=== PATIENT | male | born 1970 | race Caucasian/White ===

== ENCOUNTER 2019-01-31 13:58 | Inpatient (IN) ==
[2019-01-31] MEDS ORDERED: NS 1,000 ML IV ONE (14:16)
[2019-01-31] MEDS ORDERED: ZOFRAN IV ONE (14:16)
--- NOTE | 2019-01-31 14:22 | PROVIDER DOCUMENTATION ---
HPI-Abdominal Pain/GI Problem - General Chief Complaint: Abdominal Pain Stated Complaint: AMS/FEVER Time Seen by Provider: 01/31/19 14:07 Source: patient Allergies/Adverse Reactions: Patient Allergies Allergy/AdvReac Type Severity Reaction Status Date / Time morphine Allergy Unknown Verified 08/20/16 07:00 heparin AdvReac FLUSHING Verified 08/22/16 18:47 vancomycin AdvReac FLUSHING Verified 08/20/16 07:00 Home Medications: Home Medication List Medication Instructions Recorded Confirmed Last Taken Type Omeprazole 40 mg PO DAILY #30 capsule. 07/18/16 11/29/16 12/02/16 09:00 Rx Multivitamins/Iron [Hemocyte Plus 1 each PO DAILY #100 capsule 08/26/16 11/29/16 12/02/16 09:00 Rx Capsule] Cetirizine HCl [Zyrtec] 10 mg PO DAILY 11/29/16 11/29/16 12/02/16 09:00 History Docusate Sodium [Colace] 100 mg PO DAILY 11/29/16 11/29/16 12/02/16 09:00 History Hydrocortisone Supp [Anusol-Hc 25 mg VT BID #20 supp 12/03/16 Unknown Rx Supp] Rivaroxaban [Xarelto] 20 mg PO DAILY #0 12/07/16 11/29/16 12/02/16 09:00 Rx - History of Present Illness-ABD Nature of Presenting Problems: HPI: Pt reports to ED with R/L sided abdominal pain, fever and nausea. he has PMH of Colon Cancer stage 4, s/p bowel resection, s/p chemo, being followed by Dr Diaz. He states he was scheduled to have his port removed from is right shoulder to left shoulder. He also reports going to [place] 4 weeks ago, returned 9 days ago, his port was accessed for immunotherapy. He started to complain of R/L abdominal pain, dull, comes and goes, worse with movement, having BM normally, no vomiting, but has nausea. He states he has also had a fever for the past 2 days, did not measure it. Abdominal Pain Onset Location: reports: RUQ, LUQ Pain Radiation: reports: periumbilical, flank Quality of Pain: reports: aching, cramping, dull Severity in ED: reports: moderate Onset/Duration: reports: 2 days ago Timing: reports: still present Activities at Onset: reports: none Exposure to sick contacts?: No Modifying Factors: improves with: analgesics Associated Symptoms: reports: fatigue, nausea, weakness. denies: chest pain, diarrhea, dizziness, vomiting Last BM: this morning Dark Stools Present?: reports: none noticed Rectal Bleeding: reports: none Rectal Pain: reports: none Emesis Description: reports: none Bruising or Bleeding Gums?: No Similar Symptoms Previously?: No Recently seen or treated by another doctor?: No Review of Systems - Adult - REVIEW OF SYSTEMS - ADULT Constitutional: reports: no symptoms reported Eyes: reports: no symptoms reported Ears, Nose, Mouth & Throat: reports: no symptoms reported Cardiovascular: reports: no symptoms reported Respiratory: reports: no symptoms reported Gastrointestinal: reports: see HPI Genitourinary: reports: no symptoms reported Musculoskeletal: reports: no symptoms reported Integumentary: reports: no symptoms reported Neurological: reports: no symptoms reported Psychiatric: reports: no symptoms reported Endocrine: reports: no symptoms reported Hematologic/Lymphatic: reports: no symptoms reported Allergic/Immunologic: reports: no symptoms reported All Other Systems: Reviewed and Negative Past History - Adult - PAST MEDICAL HISTORY-ADULT Review of Records: reports: Old Records Reviewed, Nursing Assessment Review, Medications Reviewed, Social history reviewed & non-contributory. Major Childhood Illnesses: reports: denies history Cardiovascular: reports: denies history Respiratory: reports: denies history Gastrointestinal: reports: cancer Obstetrical/Gynecological: reports: denies history Genitourinary: reports: denies history Musculoskeletal: reports: denies history Neurological: reports: denies history Endocrine/Immune: reports: denies history Other Conditions: reports: denies history - PRIOR SURGERIES/PROCEDURES Surgical/Procedure History: reports: bowel surgery - IMMUNIZATION STATUS Childhood Immunizations: See Nurse Assessment Flu Vaccine: See Nurse Assessment - FAMILY HISTORY Family History: reviewed, not pertinent - SOCIAL HISTORY Smoking: denies Substance Use: none/never Alcohol Use Frequency: sober (former use) Living Situation: family Physical Exam-General - PHYSICAL EXAM-ADULT Initial Vital Signs Reviewed: Yes - CONSTITUTIONAL General Appearance: moderate distress - EYES Eyes: PERRL/EOMI, pink conjunctivae - HEAD, EARS, NOSE, MOUTH & THROAT HENMT: moist mucous membranes - NECK Neck: non-tender, full range of motion, supple - RESPIRATORY Respiratory: chest non-tender, lungs clear, normal breath sounds - CARDIOVASCULAR Cardiovascular: normal peripheral pulses, no edema, no gallop, tachycardia - GASTROINTESTINAL (ABDOMEN) Abdominal Exam: normal bowel sounds, soft, tenderness. negative: non tender, guarding, rigid, rebound - LYMPHATIC Lymphatic: no adenopathy - MUSCULOSKELETAL Back Exam: normal inspection, no CVA tenderness Extremity: normal range of motion, non-tender, normal gait, normal inspection Peripheral Pulses: radial (R): 2+, radial (L): 2+, dorsalis-pedis (R): 2+, dorsalis-pedis (L): 2+ - SKIN Integumentary: normal color, normal turgor, warm/dry - NEUROLOGIC Neurologic: chief of field operations II-XII nml as tested, grossly normal, no motor/sensory deficits, negative romberg's sign. negative: facial droop, focal weakness, motor weakness, sensory deficit - PSYCHIATRIC Psych/Mental Status: normal mood/affect, normal thought content, normal thought process, oriented x 3 Progress - PLAN OF CARE/RESULTS Progress/Plan/Lab Results: Vital Signs - 8 hr 01/31/19 14:01 Temperature 99.6 F Pulse Rate 115 H Respiratory Rate 22 Blood Pressure 121/73 O2 Sat by Pulse Oximetry 97 Orders Category Date Time Status Saline Loc NOW Care 01/31/19 14:07 Active CHEST-2 VIEWS [RAD] Stat Exams 01/31/19 14:[address] ABD/PELVIS W/IV CONT ONLY [CT] Stat Exams 01/31/19 14:[address] HEAD W/O CONTRAST [CT] Stat Exams 01/31/19 14:07 Ordered BLOOD CULTURE [BLDCUL] Stat Lab 01/31/19 14:07 Uncollected CBC WITH ELECTRONIC DIFF [HEME] Stat Lab 01/31/19 14:07 Uncollected CK PROFILE [SP CHEM] Stat Lab 01/31/19 14:07 Uncollected COMPREHENSIVE METABOLIC PANEL [CHEM] Stat Lab 01/31/19 14:07 Uncollected LACTATE, PLASMA [CHEM] Stat Lab 01/31/19 14:07 Uncollected TROPONIN T Stat Lab 01/31/19 14:07 Uncollected URINALYSIS W/POSS RFLX CULT [URINALYSIS] Stat Lab 01/31/19 14:07 Uncollected Ns 1000 ml IV Bolus X1 Med 01/31/19 14:16 Ordered 0.9% Sodium Chloride Inj [Ns] 1,000 ml IV 999 mls/hr Ondansetron [Zofran] Med 01/31/19 14:16 Once 4 mg IV NOW ONE EKG [EKG] Stat Ther 01/31/19 14:07 Ordered A/P: Neurtopenic fever. 103 Tmax. Hx colon Ca stage 4 with mets to liver. AMS. Head CT wnl, CXR wnl. Ct abdomen and pelvis see report. will admit for IV AB and pain control. vitals stable. Result Diagrams: 01/31/19 14:16 01/31/19 14:16 - XRAY 1 XRAY Study: Chest Impression: Normal ([facility] - [address], [address], [place] [address] [facility] - [address] [place] [address] Department of Imaging Patient: TROY LOPEZ Date: 01/31/19MR#: [id number] : 1970ADM Status: REG ERAt#: [id number] Age/Sex: 48/MRoom/Bed: Loc: ED Ordering Physician: Arben Cheatham MD Family Physician: Reji Perez MD Reason for Procedure: ams ____ Signed EXAM: CT HEAD W/O CONTRAST 01/31/2019 HISTORY: ams TECHNIQUE: This exam was performed using automated exposure control, adjustment of mA or kV according to patient size, and/or use of iterative reconstruction technique. COMMENT: There is no evidence of mass effect, bleed, or abnormal extra-axial fluid collection. The visualized paranasal sinuses are clear. The calvarium is intact. IMPRESSION: No evidence of acute disease. Electronically signed by Ant Dubon 01/31/2019 4:03 PM 01/31/19 2494 Interpreting Physician: Ant Dubon MD Dictated Date/Time: 01/31/19 1602 cc: Arben Cheatham MD; Reji Perez MD) - CT/MRI 1 CT Study: Abdomen, Pelvis Impression: Abnormal ([facility] - [address], [address], [place] [address] [facility] - [address] [place] [address] Department of Imaging Patient: TROY LOPEZ Date: 01/31/19MR#: [id number] : 1970ADM Status: REG [facility]#: [id number] Age/Sex: 48/MRoom/Bed: Loc: ED Ordering Physician: Arben Cheatham MD Family Physician: Reji Perez MD Reason for Procedure: abdominal pain Hx stage 4 colon ca Signed EXAM: CT ABD/PELVIS W/IV CONT ONLY 01/31/2019 HISTORY: abdominal pain Hx stage 4 colon ca TECHNIQUE: This exam was performed using automated exposure control, adjustment of mA or kV according to patient size, and/or use of iterative reconstruction technique. COMMENT: There are atelectatic changes in the dependent portions of both lower lobes. This is actually improved since 08/21/2016. There has been marked improvement in the hepatic metastatic disease since the previous examination. The adrenal glands are not enlarged. The spleen is enlarged measuring over 14.6 cm. The pancreas is unremarkable. There is stool throughout the colon. Enlarged periaortic node seen on the previous study have diminished in size. The kidneys are without evidence of hydronephrosis or mass. There is a small cyst in the left kidney which was present previously. The appendix is normal in appearance. Pelvis: There is diverticulosis in the descending and sigmoid colon without evidence of active diverticulitis. There has been partial resection of the sigmoid with anastomosis just above the rectum. The urinary bladder is unremarkable. There is no evidence of significant adenopathy. There is no evidence of acute bony abnormality. IMPRESSION: No evidence of acute intra-abdominal disease. Splenomegaly. Improved hepatic metastatic disease and basilar atelectasis. Electronically signed by Ant Dubon 01/31/2019 4:09 PM 01/31/19 1607 Interpreting Physician: Ant Dubon MD Dictated Date/Time: 01/31/19 1605 cc: Arben Cheatham MD; Reji Perez MD) 2 CT Study: Head ([facility] - [address] [place] [address], [address], [place] [address] [facility] - [address] [place] [address] Department of Imaging Patient: TROY LOPEZ Date: 01/31/19MR#: [id number] : 1970ADM Status: [facility]#: [id number] Age/Sex: 48/MRoom/Bed: Loc: ED Ordering Physician: Arben Cheatham MD Family Physician: Reji Perez MD Reason for Procedure: ams Signed EXAM: CT HEAD W/O CONTRAST 01/31/2019 HISTORY: ams TECHNIQUE: This exam was performed using automated exposure control, adjustment of mA or kV according to patient size, and/or use of iterative reconstruction technique. COMMENT: There is no evidence of mass effect, bleed, or abnormal extra-axial fluid collection. The visualized paranasal sinuses are clear. The calvarium is intact. IMPRESSION: No evidence of acute disease. Electronically signed by Ant Dubon 01/31/2019 4:03 PM 01/31/19 1609 Interpreting Physician: Ant Dubon MD Dictated Date/Time: 01/31/19 1602 cc: Arben Cheatham MD; Reji Perez MD) - CONSULTS/PCP/HOSPITALIST Notification #1 *Consult/PCP/Hospitalist*: Dr murray Time Discussed: 16:22 Consult Disposition: Admit Departure - Departure Date of Disposition Decision: 01/31/19 Time of Disposition Decision: 16:19 DIAGNOSIS: Neutropenic fever, Colon cancer, Liver metastases Disposition: ADMITTED INPATIENT 09 Certified Medical Emergency: Emergent Condition: Stable Referrals and Follow-Ups: Reji Perez MD [Primary Care Provider] - - Critical Care Note This patient required my direct & personal management of CC.: No Attestation - Physician/ PHILLY Attestation Patient care was provided by Advanced Practice Provider:: No The physician spent face to face time with patient:: Yes Advanced Practice Provider documentation review:: Supervising physician onsite and consulted in the evaluation and care of this patient. The physician did have a face to face encounter with the patient.
[2019-01-31 14:37] LABS: BASO# 0.01 X1000 (0.0-0.2); BASO% 0.3 % (0.0-0.8); EOS# 0.03 X1000 (0.0-0.7); EOS% 0.8 % (0.0-10.0); HEMATOCRIT 34.8 % (42.0-52.0); HEMOGLOBIN 11.4 g/dL (14.0-18.0); LYMPH# 0.41 X1000 (1.2-3.4); LYMPH% 10.5 % (20.5-51.1); MCH 30.6 PG (27-31); MCHC 32.8 g/dL (33-37); MCV 93.3 FL (81-99); MONO# 0.17 X1000 (0.11-0.59); MONO% 4.4 % (1.7-9.3); MPV 8.8 FL (7.4-10.4); NEUT# 3.28 X1000 (1.4-6.5); PLT 152 X1000 (130-400); RBC 3.73 XMIL (4.7-6.1); RDW 15.3 % (11.5-14.5)
[2019-01-31 14:43] LABS: URINE SOURCE CLEAN CATCH
[2019-01-31 14:48] LABS: BILIRUBIN URINE NEGATIVE (NEGATIVE); COLOR YELLOW; GLUCOSE URINE NEGATIVE (NEGATIVE); KETONE URINE NEGATIVE (NEGATIVE); TURBIDITY URINE CLEAR (CLEAR); UR EPITHELIAL CELLS <10 /HPF (<10); URINE BACTERIA NEGATIVE /HPF; URINE RBC <10 /HPF (<10); URINE WBC <10 /HPF (<10)
[2019-01-31 14:49] LABS: BLOOD URINE NEGATIVE (NEGATIVE); LEUKOCYTES URINE NEGATIVE (NEGATIVE); NITRITE URINE NEGATIVE (NEGATIVE); PROTEIN URINE TRACE mg/dL (NEGATIVE); SP GRAVITY URINE 1.013; UROBILINOGEN URINE NORMAL (NORMAL)
[2019-01-31 15:01] LABS: AGAP 13; ALB/GLOB RATIO 1.6; ALBUMIN 4.1 g/dL (3.5-5.0); ALKALINE PHOSPHATASE 134 U/L (32-122); BUN 7 mg/dL (8-22); CALCIUM 9.4 mg/dL (8.8-10.2); CHLORIDE 99 mmol/L (98-107); CK PROFILE 185 U/L (24-204); COSMO 272; CREATININE 0.8 mg/dL (0.7-1.2); ESTIMATED GFR > 60; GLUCOSE 94 mg/dL (70-104); GOT 35 U/L (10-34); GPT 43 U/L (10-44); POTASSIUM 3.6 mmol/L (3.5-5.1); SODIUM 137 mmol/L (136-145); TCO2 25 mmol/L (25-35); TOTAL BILIRUBIN 0.63 mg/dL (0.20-1.00); TOTAL PROTEIN 6.7 g/dL (6.3-8.3)
[2019-01-31] MEDS ORDERED: NS 2,000 ML IV ONE (15:22)
[2019-01-31] MEDS ORDERED: DILAUDID IV ONE (15:31)
[2019-01-31] MEDS ORDERED: ROCEPHIN 1 GM in NS 50 ML IV ONE (15:34)
--- NOTE | 2019-01-31 16:05 | Diag Imaging Result Doc PS360 ---
EXAM: CT HEAD W/O CONTRAST 01/31/2019 HISTORY: ams TECHNIQUE: This exam was performed using automated exposure control, adjustment of mA or kV according to patient size, and/or use of iterative reconstruction technique. COMMENT: There is no evidence of mass effect, bleed, or abnormal extra-axial fluid collection. The visualized paranasal sinuses are clear. The calvarium is intact. IMPRESSION: No evidence of acute disease. Electronically signed by Ant Dubon 01/31/2019 4:03 PM
--- NOTE | 2019-01-31 16:12 | Diag Imaging Result Doc PS360 ---
EXAM: CT ABD/PELVIS W/IV CONT ONLY 01/31/2019 HISTORY: abdominal pain Hx stage 4 colon ca TECHNIQUE: This exam was performed using automated exposure control, adjustment of mA or kV according to patient size, and/or use of iterative reconstruction technique. COMMENT: There are atelectatic changes in the dependent portions of both lower lobes. This is actually improved since 08/21/2016. There has been marked improvement in the hepatic metastatic disease since the previous examination. The adrenal glands are not enlarged. The spleen is enlarged measuring over 14.6 cm. The pancreas is unremarkable. There is stool throughout the colon. Enlarged periaortic node seen on the previous study have diminished in size. The kidneys are without evidence of hydronephrosis or mass. There is a small cyst in the left kidney which was present previously. The appendix is normal in appearance. Pelvis: There is diverticulosis in the descending and sigmoid colon without evidence of active diverticulitis. There has been partial resection of the sigmoid with anastomosis just above the rectum. The urinary bladder is unremarkable. There is no evidence of significant adenopathy. There is no evidence of acute bony abnormality. IMPRESSION: No evidence of acute intra-abdominal disease. Splenomegaly. Improved hepatic metastatic disease and basilar atelectasis. Electronically signed by Ant Dubon 01/31/2019 4:09 PM
--- NOTE | 2019-01-31 16:13 | Diag Imaging Result Doc PS360 ---
EXAM: CHEST-2 VIEWS 01/31/2019 HISTORY: ams TECHNIQUE: PA and lateral chest COMMENT: There is no evidence of acute cardiac or pulmonary disease. Compared to 01/28/2019 there has been no significant change. IMPRESSION: Stable chest. Electronically signed by Ant Dubon 01/31/2019 4:11 PM
[2019-01-31] MEDS ORDERED: TYLENOL PO ONE (16:18)
[2019-01-31] MEDS ORDERED: ZYVOX 600 MG/D5W 600 MG/300 ML IVPB IV ONE (16:19)
[2019-01-31] MEDS: CUBICIN 600 MG in NS 100 ML IV SCH (18:19)
--- NOTE | 2019-01-31 18:56 | Diag Imaging Result Doc PS360 ---
EXAM: CT THORAX W/O CONTRAST 01/31/2019 HISTORY: r/o PNA or any poss mets TECHNIQUE: This exam was performed using automated exposure control, adjustment of mA or kV according to patient size, and/or use of iterative reconstruction technique. COMMENT: There is a 7 mm nodule in the left upper lobe on image 42, this was not present on the previous study of 08/22/2016. There is a nodule adjacent to the major fissure on image 66 there is some atelectasis or fibrosis in the costophrenic sulci which is actually improved since the previous study. There is a 6 to 7 mm nodule in the left upper lobe. This was not present previously. The larger opacities present in the lingula and both lower lobes on the previous study have resolved. There is no evidence of significant adenopathy. No abnormal fluid collections are present. The regional skeleton appears to be intact. IMPRESSION: Multiple pulmonary nodules which most likely represent metastases. Electronically signed by Ant Dubon 01/31/2019 6:53 PM
--- NOTE | 2019-01-31 19:26 | HISTORY AND PHYSICAL ---
ADDENDUM: This is a 48-year-old gentleman with colon cancer who came in from home with abdominal discomfort and fever. He took a recent immunotherapy in [place] that was some sort of insulin CK 3 treatment that I guess is not available [place]. This was about 2 weeks ago. His port was accessed and I am not entirely sure how clean they were accessing his port or not but in any case he came in with fever, altered mentation. He is leukopenic but he is not neutropenic. The rest of his scans are unremarkable. There is no evidence of active infection and there is concern over possible port infection. His port has not been functioning very well. On exam otherwise he looks well, no focal issues. Abdominal exam is benign so we will put on broad spectrum antibiotics. He is allergic to vancomycin or at least he has red man syndrome and so now he is going to be put on daptomycin. We have consulted ID, heme-onc, Dr. Boo is actually due to take out the port, my only concern and I think it is fine to take out the port is just I do not think we should replace it until he is not bacteremic so we will continue to follow. cc: Andrew Simmons MD
--- NOTE | 2019-01-31 20:04 | HISTORY AND PHYSICAL ---
PRIMARY CARE PROVIDER: Reji Perez. ONCOLOGIST: Dr. Cheri Dominguez. GENERAL SURGEON: Dr. Boo. CHIEF COMPLAINT: Abdominal pain, fever. HISTORY OF PRESENT ILLNESS: Mr. Jarrell is a 48-year-old male who carries a past medical history of stage IV colon cancer with metastasis to the liver. He has had [address] Dominguez, DVT in lungs, to both upper and lower extremities on Xarelto, reported that he spent 3 weeks in [facility] receiving different immunotherapy treatments and was on the Manfred diet. He underwent a CK3 treatment, IPT, and hyperbaric oxygen chamber and does coffee enemas b.i.d. He reported some issues from his port as they were not able to use it in [place]. The last time his port was used was in January 20. He was supposed to have it replaced tomorrow morning by Dr. Omari Boo. However at lunchtime today he started having rigors. His fever was 102. He was too weak to walk. He was having a sharp stabbing abdominal pain that is intermittent in his right and left upper quadrant, complains of aches all over. Workup in the ED he had a fever of 103. He was tachycardic. White count of 3, plasma lactate of 1.7. We did get a report of altered mental status however the patient is now awake and alert, oriented, in good spirits. He does like to cut up. His head CT did not show any evidence of acute disease. His abdomen and pelvis CT showed no evidence of acute intraabdominal disease, splenomegaly, improved hepatic metastatic disease and bibasilar atelectasis. His chest x-ray was stable. We will go ahead and do a CT scan of his chest to make sure rule out any pneumonia or any other metastasis. We have drawn blood cultures, urine culture, urinalysis was negative. We will place him on CIC. Consult Dr. Cheri Dominguez, Dr. Boo, Dr. Hickman with GI as well as Dr. Mario Montero for Infectious Disease. He does have an allergy to vancomycin. We will put him on daptomycin and Rocephin and wait for Dr. Montero's recommendations. PAST MEDICAL HISTORY: 1. Stage IV colon cancer with metastasis to the liver. He has had [address] Cheri Dominguez. Underwent 3 weeks course of immunotherapy and the Manfred diet with CK3 treatment, IPT and hyperbaric oxygen chamber as well as coffee enemas b.i.d. in [facility]. At that time is when his port became nonfunctioning, they believe that a stitch had came loose and was turned a little bit. He is supposed to have his port replaced by Dr. Boo in the morning. 2. 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 3. Bilateral inguinal hernias. PAST SURGICAL HISTORY: 1. Disk replaced in the neck 15 years ago. 2. Tonsillectomy. 3. Colon resection and then a colon resection repair. FAMILY HISTORY: Reviewed and noncontributory. SOCIAL HISTORY: He is . He lives with his . No alcohol, tobacco or illicit drug use. ALLERGIES: To morphine sounds like it caused spasms, heparin caused flushing, vancomycin red man syndrome. HOME MEDICATIONS: Have not been verified. PHYSICAL EXAMINATION: VITAL SIGNS: Temperature is 100.3 degrees, heart rate initially in the 1 teens, he is now up to the 120s, respirations 18, blood pressure 113/71, O2 is 97% on room air. GENERAL: Mr. Jarrell is a 48-year-old male who is lying on the stretcher in no acute distress. Initially it appeared that he did not want to answer any questions. However he is a big jokester and was able to cut up and was awake, alert, and oriented x4 and answered all questions appropriately. HEENT: Atraumatic, normocephalic. PERRL. NECK: Supple. Trachea midline. CARDIOVASCULAR: S1, S2 appreciated. No murmurs, gallops, rubs noted. RESPIRATORY: Lung sounds clear bilaterally. GASTROINTESTINAL: Soft, tender to the right and left upper quadrants to palpation. The rest of his abdomen was soft and nontender to the touch. Positive bowel sounds 4 quads. EXTREMITIES: Lower extremities negative for edema. SKIN: Appears to be warm, dry, and intact. There is a port placed to the upper chest. NEURO: Again patient does like to kid around. He did wake up. He was awake, alert, oriented, follows commands, moves all extremities, answered all questions appropriately. Supportive at the bedside. DIAGNOSTIC DATA: CT of thorax pending. Abdomen and pelvis CT, no evidence of acute intraabdominal disease, splenomegaly improved, hepatic metastasis, bibasilar atelectasis. Spleen is enlarged measuring over 14.6 cm. The pancreas is unremarkable. Stool throughout the colon. Head CT no evidence of acute disease. Chest x-ray was stable. LABORATORY DATA: White count 3, hemoglobin and hematocrit 11 and 34, platelet count is 152,000. Sodium 137, potassium 3.6, BUN is 7, creatinine 0.8, blood glucose 94, AST 35, ALT 43, alkaline phosphatase 134. Troponin less than 0.010. Urinalysis was negative for bacteria, negative for nitrites. ASSESSMENT AND PLAN: 1. Probable sepsis with a probable bloodstream infection, we are checking blood cultures. He has recently taken a trip to [facility] where he spent 3 weeks getting immunotherapy through his port and at some point it became dysfunctional. Last time it was used was on January 20. He was given IPT therapy, CK3 treatment and hyperbaric oxygen chamber treatment as well as a Manfred diet in [facility]. He was given 2 L of intravenous fluid. We will recheck a lactate level, initiate him on broad-spectrum antibiotics. He does have an allergy to vancomycin that causes red man syndrome. We will start him on daptomycin and Rocephin and continue with IV fluids. 2. Acute abdominal pain right and left upper quadrant. He is tender to the touch however it is soft. We will consult GI. 3. Stage IV colon cancer with metastasis to the liver, [address] Dominguez and recent 3 weeks of immunotherapy in [facility], follows the Manfred diet. Reported today that he had his juices, an apple and oatmeal and does 2 coffee enemas b.i.d. 4. History of pulmonary embolism, deep vein thrombosis. Will continue his home Xarelto when verified. 5. Further recommendations to follow physician evaluation, laboratory and diagnostic data. Dictated by CHRISTINA Mims for Andrew Simmons MD cc: Reji Perez MD
[2019-01-31] MEDS ORDERED: SODIUM CHLORIDE 0.9% INJ SCH (21:05)
[2019-01-31] MEDS: DILAUDID IV PRN (21:19)
[2019-01-31] MEDS: NEXIUM IV SCH (21:19)
[2019-01-31] MEDS: OFIRMEV 1000 MG/ISOTONIC SOLN 1,000 MG/100 ML BOTTLE IV PRN (21:29)
[2019-02-01] MEDS: DILAUDID IV PRN ×5 (00:12→17:54)
[2019-02-01 00:39] LABS: INR 1.02; PROTIME 14.2 Seconds (11.0-16.0)
[2019-02-01 00:40] LABS: PTT 32.6 Seconds (22.3-41.8)
[2019-02-01] MEDS: NS 1,000 ML IV SCH ×3 (01:40→16:15)
[2019-02-01 05:47] LABS: BASO# 0.01 X1000 (0.0-0.2); BASO% 0.4 % (0.0-0.8); HEMATOCRIT 36.9 % (42.0-52.0); HEMOGLOBIN 11.8 g/dL (14.0-18.0); LYMPH% 15.6 % (20.5-51.1); MCH 30.9 PG (27-31); MCV 96.6 FL (81-99); MONO# 0.15 X1000 (0.11-0.59); MONO% 5.8 % (1.7-9.3); MPV 9.1 FL (7.4-10.4); NEUT# 2.01 X1000 (1.4-6.5); NEUT% 78.2 % (42.2-75.2); PLT 115 X1000 (130-400); RBC 3.82 XMIL (4.7-6.1); RDW 16.2 % (11.5-14.5); WBC 2.57 X1000 (4.8-10.8)
[2019-02-01] MEDS ORDERED: MOTRIN PO ONE (05:49)
[2019-02-01 06:11] LABS: AGAP 11; ALB/GLOB RATIO 1.5; ALBUMIN 3.8 g/dL (3.5-5.0); ALKALINE PHOSPHATASE 119 U/L (32-122); BUN 7 mg/dL (8-22); CALCIUM 8.9 mg/dL (8.8-10.2); CHLORIDE 101 mmol/L (98-107); COSMO 277; CREATININE 0.8 mg/dL (0.7-1.2); ESTIMATED GFR > 60; GLUCOSE 98 mg/dL (70-104); GOT 44 U/L (10-34); GPT 47 U/L (10-44); MAGNESIUM 1.7 mg/dL (1.5-2.7); POTASSIUM 3.8 mmol/L (3.5-5.1); SODIUM 140 mmol/L (136-145); TCO2 28 mmol/L (25-35); TOTAL BILIRUBIN 0.61 mg/dL (0.20-1.00); TOTAL PROTEIN 6.4 g/dL (6.3-8.3)
[2019-02-01] MEDS: DUONEB (A & A) INH PRN ×3 (06:46→20:50)
--- NOTE | 2019-02-01 07:01 | INFECTIOUS DISEASE CONSULT REP ---
DATE: 02/01/2019 CONCLUSION: The patient most likely has an infection of his right chest Port-A-Cath. He does have pulmonary nodules but most likely these represent metastatic disease from prior colonic cancer rather than pneumonia. The patient also has oral candidiasis. RECOMMENDATIONS: I agree with treating the patient with daptomycin. I have substituted cefepime for Rocephin. I agree with taking out the patient's Port-A-Cath. I started the patient on Nystatin swish and swallow. DISCUSSION: The patient has had fever for a day and two days ago, he started having upper abdominal pain and pain where his right chest Port-A-Cath is. The patient's CBC shows a white count of 2570, hemoglobin 11.8, and platelet count 115,000. Creatinine is 0.8. GFR is greater than 60. The patient's ALT is 47. Urinalysis is negative for white cells and bacteria. CT scan of the head shows no acute disease. CT scan of the abdomen and pelvis shows improvement in the patient's metastatic disease. CT scan of the lungs shows multiple pulmonary nodules that most likely represent metastatic disease. Blood cultures are pending. PAST MEDICAL HISTORY/REVIEW OF SYSTEMS: The patient's answered these questions because the patient was sleepy. Eyes and Ears: No difficulty hearing or seeing. Neck: No stiffness. Respiratory: No cough or shortness of breath. Cardiac: No chest pain or palpitations. GI: No nausea, vomiting, or diarrhea. : No dysuria or flank pain. Bones, Joints, and Muscles: The patient says he hurts all over. Integument: No rash. PREVIOUS HOSPITALIZATIONS AND OPERATIONS: The patient has had a colectomy, Port-A-Cath placement, and admission for a right upper extremity septic phlebitis due to an IV. MEDICAL DISEASES: Positive for metastatic colon cancer, pulmonary emboli with leg deep venous thrombosis. The patient has also had septic phlebitis. INFECTIOUS DISEASE HISTORY: Positive for septic phlebitis. Negative for pneumonia and UTI. FAMILY HISTORY: Positive for cancer. Negative for heart attack. SOCIAL HISTORY: The patient is . He lives in [place]. He has a dog as a pet. He does not smoke cigarettes, drink alcoholic beverages, or abuse drugs. He is taking short-term disability. He is a global logistics analyst. ALLERGIES: He is allergic to vancomycin, morphine, and heparin. MEDICATIONS: Medications taken at home include the following: Biotin, Colace, eszopiclone, hydrocodone, vitamins and minerals, omeprazole, oxycodone, Lyrica, Xarelto, and Co-Q10. PHYSICAL EXAMINATION: Vital Signs: Temperature is 102.5 degrees, pulse 111, respirations 14, blood pressure is 102/64. The patient weighs 221 pounds. General: This is an ill-appearing, middle-aged male. He is lethargic. Head, Eyes, Ears, Nose, and Throat: No drainage noted from the nose or ears. He did appear to be able to hear my spoken words and see near objects. Neck: No meningismus. Lungs: Clear to auscultation. Cardiovascular: Heart rate is regular. Thorax: The patient is tender over his Port-A-Cath site. There is no erythema or drainage from the site. Abdomen: His abdomen was soft but it is tender in both right and left sides. Neurologic: As mentioned above, the patient was sleepy. He could hear my spoken words and see near objects. He can move his extremities. He does not have a tremor. I was unable to test his memory. Integument: No rash noted. Thank you for the consult. cc: Mario Montero MD [facility] CENTERBlanquita
--- NOTE | 2019-02-01 07:08 | INFECTIOUS DISEASE CONSULT REP ---
DATE: 01/31/2019 CONCLUSION: The patient has oral candidiasis. RECOMMENDATIONS: I have started the patient on nystatin swish and swallow. cc: Mario Montero MD
--- NOTE | 2019-02-01 07:14 | Diag Imaging Result Doc PS360 ---
EXAM: CHEST-PORTABLE INDICATION: fu TECHNIQUE: One view COMPARISON: 01/31/2019 FINDINGS: Right chest port is in stable position. There has been development of trace atelectasis at the left lung base. No new consolidation is identified, otherwise. Cardiac silhouette is stable. IMPRESSION: Development of trace atelectasis at the left lung base. Stable chest, otherwise. Electronically signed by Andrew Lowe 02/01/2019 7:12 AM
[2019-02-01] MEDS: MYCOSTATIN SUSP PO SCH ×5 (07:51→20:20)
[2019-02-01] MEDS: MAXIPIME 2 GM in NS 100 ML IV SCH ×2 (07:51→16:14)
[2019-02-01] MEDS ORDERED: SENSORCAINE-MPF 0.5%/EPI 1:200,000 ONE (09:04)
[2019-02-01] MEDS ORDERED: XYLOCAINE 1% ONE (09:04)
[2019-02-01] MEDS ORDERED: XYLOCAINE-MPF 2% ONE (09:14)
[2019-02-01] MEDS ORDERED: DIPRIVAN 1% ONE (09:14)
[2019-02-01] MEDS ORDERED: ZOFRAN ONE (10:04)
[2019-02-01] MEDS ORDERED: NORCO-10 PO PRN (10:09)
[2019-02-01] MEDS: OFIRMEV 1000 MG/ISOTONIC SOLN 1,000 MG/100 ML BOTTLE IV PRN ×2 (11:23→21:45)
[2019-02-01] MEDS: DEMEROL ONE ×2 (11:30→11:57)
--- NOTE | 2019-02-01 11:35 | Diag Imaging Result Doc PS360 ---
EXAM: CHEST-PORTABLE INDICATION: CVL TECHNIQUE: One view COMPARISON: 02/01/2019 FINDINGS: The right chest port has been removed and there has been interval placement of a subclavian central line. The tip projects over the lower SVC in the expected position. There is stable minimal atelectasis at the left lung base. No new consolidation is identified. Cardiac silhouette is stable. There is no evidence of pneumothorax status post central line placement. IMPRESSION: Interval placement of right central line with no evidence of pneumothorax postplacement. Electronically signed by Andrew Lowe 02/01/2019 11:33 AM
--- NOTE | 2019-02-01 12:04 | OPERATIVE NOTE ---
PROCEDURE DATE: 02/01/2019 PREOPERATIVE NOTE: Stage IV colon cancer, port sepsis. PROCEDURE: Removal right subclavian power port with placement of right central line. DESCRIPTION OF PROCEDURE: The patient was brought to the operating room. After satisfactory induction of IV and LMA anesthesia, his right chest and neck were prepped and draped in the appropriate manner. The old scar was infiltrated with 0.25% Marcaine with epinephrine and lidocaine with epinephrine, and the old scar was excised. The port was subsequently delivered. It was disconnected. Guidewire from central line was threaded down the old port. The port was backed out. The last 3 inches was snipped and sent for routine culture. Triple-lumen catheter was subsequently threaded down through the wire to the superior vena cava right atrial junction. It was anchored to the skin with 3-0 silk. Subcutaneous was subsequently closed with 3-0 Vicryl and the skin itself with stainless steel clips. Sterile dressing was applied. He was awakened and extubated in the operating room and transferred to recovery. ESTIMATED BLOOD LOSS: Less than 5 mL. cc: Omari Boo MD
[2019-02-01 13:22] LABS: AMYLASE 45 U/L (20-200); LIPASE 21 U/L (13-60)
[2019-02-01] MEDS ORDERED: NS 1,000 ML IV ONE (14:18)
[2019-02-01] MEDS: MIRALAX PO SCH (14:41)
--- NOTE | 2019-02-01 14:51 | PROGRESS NOTE ---
DATE: 02/01/2019 SUBJECTIVE: Patient has no major complaints. He has had fevers all night apparently up until this morning 102.2. It is unclear etiology though, but presumably this is from an infected port. In any case, the patient's T-max was 103 degrees. Most recent temperature is 99.7 degrees. OBJECTIVE: Cardiovascular regular rate and rhythm. Pulmonary bilateral breath sounds. Clear to auscultation. GI was soft, nontender, nondistended. Bowel sounds are positive. Extremity exam, no clubbing or cyanosis. Lymphatic exam with no peripheral edema. Neurological exam was nonfocal. His port site has been removed and looks clean, dry and intact. LABORATORY DATA: White count down to 2.5. Hemoglobin and hematocrit 11 and 36 with platelets of 115,000. AST and ALT of 44 and 47. TSH of 0.06. PROBLEM LIST: 1. Presumed port infection with bacteremia. Appreciate Dr. Montero's input. We are using daptomycin because patient is allergic to vancomycin. Dr. Montero has put the patient on cefepime. He is developing neutropenia. 2. Stage IV colon cancer with mets. We are going to continue pain control. I encouraged the treatment with OxyContin long-acting because I think he is going to require some chronic pain control. 3. Liver metastases with elevated liver enzymes. Aware of diagnosis. DISPOSITION: 1. He has got to be not bacteremic. Port has been removed. We will see how he does. 2. Pulmonary embolism and deep venous thrombosis. We will continue Xarelto and follow. cc: Andrew Simmons MD
[2019-02-01] MEDS: CUBICIN 600 MG in NS 100 ML IV SCH (16:15)
[2019-02-01] MEDS ORDERED: ROCEPHIN 1 GM in NS 50 ML IV SCH (17:00)
[2019-02-01] MEDS: XARELTO PO SCH (17:54)
--- NOTE | 2019-02-01 19:57 | GASTROENTEROLOGY CONSULTATION ---
DATE: 02/01/2019 ATTENDING PHYSICIAN: Dr. Simmons. PRIMARY CARE PHYSICIAN: Dr. Reji Perez. REASON FOR CONSULTATION: Abdominal pain in the right upper quadrant. HISTORY OF PRESENT ILLNESS: Mr. Jarrell is a 48-year-old male, who was admitted on 01/31/2019 for abdominal pain in the right upper quadrant, fever of 102 and aches and pains, and feeling drowsy. According to the patient and family at bedside, the patient was diagnosed with colon cancer in 2017. He had part of his colon removed. At that time, he was found to have liver metastasis. He is undergoing chemotherapy with Dr. Dominguez. The last dose was one month ago. He had gone 3 weeks ago to [facility] and has been receiving different kinds of mineral therapy treatments at their hospital. He was put on Manfred Diet. He underwent CK 3 treatment, IPT and hyperbaric oxygen chamber and does coffee enemas twice a day. They had some difficulty accessing his port while in [place]. On admission here with fever abdominal pain, and lethargy, he was noted to have fever of 102. It was believed to be related to port infection. Today, he had port removal by Dr. Boo and a right central line was placed. The patient complains of abdominal pain in the right upper quadrant, which he says is a sharp knife, 10/10 happening off and on for the last few days. He denies any known triggers or any known relieving factors. He denies any change in bowel habits. Denies any nausea, vomiting, vomiting blood, or passing blood in the stools. PAST MEDICAL HISTORY: Stage IV colon cancer with liver mets, DVT in the upper and lower extremities. He is on Xarelto. Bilateral inguinal hernias and now port infection. PAST SURGICAL HISTORY: A disk replaced in the neck 15 years ago, tonsillectomy, colon resection and colon resection repair in 2017. FAMILY HISTORY: Noncontributory. SOCIAL HISTORY: He is . His is supportive. His is a respiratory therapist. No history of alcohol, tobacco, or illicit drugs. His mother was also at bedside. ALLERGIES TO: Morphine causing spasms, heparin causing flushing, vancomycin causing red man syndrome. MEDICATIONS IN THE HOSPITAL: Include Lyrica, Ambien, Dilaudid, albuterol/ipratropium, Biotin, daptomycin, Colace, Nexium, hydrocodone/acetaminophen, hydrocortisone, iron C once daily, cefepime, multivitamin, iron once daily, normal saline 75 mg, nystatin 5 mL 4 times a day, Tylenol 1000 mg IV q.8h as needed, Prilosec once a day which I will stop as the patient is already on Nexium once a day, Zofran 4 mg IV every 4 hours as needed, OxyContin 10 mg p.o. b.i.d., and co- enzyme Q10 at 200 mg p.o. daily. REVIEW OF SYSTEMS: The patient does have a fever today of 102.2. He does feel a little weak. He complained of discomfort in the right upper quadrant but today the discomfort is 8/10. He denies any nausea, vomiting, or vomiting blood. He denies any blood in the stools. He denies any other neurologic complaints at the moment. PHYSICAL EXAMINATION: Vitals: Temperature 102.2 degrees, pulse rate 122, respiratory rate 18, blood pressure 119/68, saturating 98% on nasal cannula. Body weight of 221 pounds. BMI 30.0 kg. General: The patient is obese, lying in bed, in no acute distress. HEENT: Pale conjunctivae. No icterus. Pupils equal, reactive to light. Neck: Supple. Abdomen: Discomfort in the right upper quadrant. No rebound. No guarding. Nondistended abdomen. Extremities: No cyanosis, clubbing, and edema. Neurologic: Alert, awake, oriented. LABS: Hemoglobin and hematocrit 11.9 and 36.9. White count of 2.57. Platelet count of 115,000. Sodium 140, potassium 3.8, chloride 101, bicarb 20, anion gap 11, BUN of 7, creatinine 0.8, glucose of 98, calcium is 8.9, magnesium 1.7. Total bilirubin is 0.61. AST 44, ALT 47, alkaline phosphatase 190, total protein 6.4, albumin 3.8 and lactate of 1.8, TSH 0.06. Blood culture x2 were drawn yesterday. They are currently pending. IMAGING: In the form of chest CT done, showed multiple pulmonary nodules. Most likely, represent metastasis and abdominal pelvic CT scan which showed no evidence of any acute intra-abdominal disease, splenomegaly improved, hepatic metastatic disease and basilar atelectasis. IMPRESSION AND PLAN: 1. Probable sepsis. Suspect the port infection. The patient had a port removal today with Dr. Boo and right subclavian central line was placed. The patient is currently enamorado cultured. He is on broad-spectrum antibiotics. He is getting IV fluids. He is still spiking fevers. This is managed by primary team. Infectious Disease team is on board as well. 2. The patient does of oral candidiasis. He is on nystatin per Dr. Montero. The patient has right upper quadrant pain and sometimes left upper quadrant pain with unknown triggers. His CT scan is negative other than liver metastasis. His liver enzymes are mildly high. His lactate is normal. We will check amylase and lipase. We will keep him on proton pump inhibitor once daily. 3. Mild anemia. The patient is mildly Anemic. We will continue to watch closely. We will obtain an ultrasound of the abdomen to evaluate for any evidence of biliary sludge. The patient does have stool in the colon as noted on the CT scan. We will start him on MiraLAX twice daily. 4. Diverticulosis in the descending and sigmoid colon as seen on CT scan, but without evidence of diverticulitis. The patient will avoid excessive corn, nuts, and seeds in his diet. We will continue to have a high-fiber diet. 5. If the patient's symptoms persist, we may have to pursue esophagogastroduodenoscopy at some point. We will follow the blood cultures for now. The above plans were discussed with the patient and family at bedside. All questions answered. Please call us with any further questions. cc: MD Reji Yates MD Heather Shah, MD MTDD
--- NOTE | 2019-02-01 20:06 | Diag Imaging Result Doc PS360 ---
EXAM: US ABDOMEN-COMPLETE HISTORY: abdominal pain RUQ TECHNIQUE: Abdominal ultrasound COMPARISON: CT from 01/31/2019 FINDINGS: The pancreas is predominantly obscured. No aortic aneurysm. The liver is not enlarged. Subtle hepatic lesions. Normal gallbladder. No stones. Normal right kidney. No hydronephrosis. Spleen is mildly prominent measuring 13.5 cm. Normal left kidney. No hydronephrosis. IMPRESSION: No change from the recent CT. Electronically signed by Tony Jacobo 02/01/2019 8:03 PM
[2019-02-01] MEDS: LYRICA PO SCH (20:19)
[2019-02-01] MEDS: COLACE PO SCH (20:19)
[2019-02-01] MEDS: OXYCONTIN PO SCH (20:19)
[2019-02-01] MEDS: NEXIUM IV SCH (20:19)
--- NOTE | 2019-02-01 20:52 | HEMO/ONC CONSULTATION ---
DATE: 02/01/2019 REASON FOR CONSULTATION: Is for metastatic colon cancer, patient known. HISTORY OF PRESENT ILLNESS: Mr. Jarrell is a 48-year-old male who is known to us as we have been treating him for metastatic colorectal cancer for the last almost 3 years. Most recently, the patient has been taking Camptosar with his last dose being on 12/17/2018. He has taken a break from treatment in order to go to [facility] to participate in a holistic medical program there. He has been drinking juices and having coffee-grounds enemas twice per day. The patient only recently returned this past week. He had contacted our office reporting that his port "flipped" while he was in [facility]. He is actually scheduled as an outpatient to get his port replaced this morning. Per the patient's who is at bedside, the patient started to experience fever, chills, rigors and extreme weakness yesterday afternoon. He was actually brought to the emergency department via ambulance. He has now been admitted for further evaluation and treatment. It is believed that he has acute infection sepsis related to a port infection. He has now had his port removed. In fact, it was removed just a short while ago. Currently, the patient is lying in his bed having rather significant riders. He just recently had a dose of Demerol maybe about 1 to 2 minutes ago. He spiked a fever last night of 103.7 rectally. We have been consulted in order to assist in the patient's care while he is here at [facility]. PAST MEDICAL HISTORY: 1. Metastatic colorectal cancer, diagnosed back in 2015. Most recently, he received Camptosar back in December 2018. 2. Degenerative disk disease. 3. Hernia. SURGICAL HISTORY: 1. C5-C6 spinal fusion back in 2003. 2. Hernia repair in 1999. 3. Colon resection back in 2015. 4. Port placement back in 2015. SOCIAL HISTORY: The patient is and lives with his spouse. He has 2 children. 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 He denies any prior alcohol, illicit drug use or tobacco use. FAMILY HISTORY: His mother is alive with no significant health issues. His father is also alive and diagnosed with cancer of the liver back in 2005. He has 2 brothers who are also both living and have no health issues. His family history is also positive for lung cancer. REVIEW OF SYSTEMS: Twelve point review of systems has been completed and is negative except for as expressed in HPI. PHYSICAL EXAMINATION: Vital Signs: Temperature is 102.2 degrees, heart rate 160, respiratory rate is 22, blood pressure is reportedly 119/68, O2 saturations 98% on 2 L nasal cannula. General: This is a male who is having rigors lying in his hospital bed. His is at bedside. There is also another family member. HEENT: Head normocephalic, atraumatic. Eyes: Pupils equal, round, reactive. Ears, nose, throat, neck, mouth: Oral mucosa appears to be normal. Gross auditory acuity is intact. Cardiovascular: Tachycardia noted. Seems like he is in regular rhythm, but it is hard to differentiate due to the fast heart rate Chest: Clear to auscultation. Gastrointestinal: Abdomen is soft. He is having some left upper quadrant tenderness to palpation. Musculoskeletal: No obvious bony abnormalities. Skin: No rashes. Neurologic: Patient is actually alert. He seems to be engaged in our conversation. However, due to his shaking he can't really answer too many questions. LABS AND STUDIES: White blood cells are 2.57, hemoglobin 11.8, platelet count a 115,000 which is down from 152,000 yesterday. He had a CT of chest, abdomen, and pelvis which all show improved to stable disease when compared to scans done back in 2017. Head CT is also negative. ASSESSMENT AND PLAN: 1. Sepsis, bacteremia, riders. Likely port infection. Port has now been removed. Infections disease is involved and the patient is on IV antibiotics. We will follow cultures and follow along. Hopefully he will have improvement now that the source of infection has been removed. 2. Metastatic colorectal cancer. Patient has not had treatment since 12/18/2018. No plans for any treatment while he is in the hospital and acutely ill. We will have the patient follow up as an outpatient and discuss further treatment at that time. 3. Rigors. Continue to provide this Demerol as needed. 4. Acute abdominal pain. Left upper quadrant. He is being evaluated by Gastroenterology. Follow up on their recommendations. 5. History of pulmonary embolism and deep vein thromboses. We do recommend the patient continue with his Xarelto. He has been on that for some time now and tolerates it well. Of course, if he needs some sort of scope, we can work with gastroenterology in regards to holding the medication as needed. 6. Thrombocytopenia, new problem. We will go ahead and check a DIC panel just to make sure that this is not an issue currently. He is acutely ill. Thank you for consulting us on Mr. Jarrell. We will continue following and adjust our treatment plan per his hospital course. Dictated by MARY Kulkarni for Cheri Dominguez MD cc: Cheri Dominguez MD I have seen and examined the patient and the above note reflects my history, physical exam, assessment and plan. Cheri OTTO
[2019-02-01] MEDS: AMBIEN PO SCH (21:09)
[2019-02-02] MEDS: MAXIPIME 2 GM in NS 100 ML IV SCH ×4 (00:48→23:39)
[2019-02-02] MEDS: NS 1,000 ML IV SCH ×2 (04:42→18:01)
[2019-02-02] MEDS: DUONEB (A & A) INH PRN (07:36)
[2019-02-02] MEDS: MIRALAX PO SCH (08:14)
[2019-02-02] MEDS: OFIRMEV 1000 MG/ISOTONIC SOLN 1,000 MG/100 ML BOTTLE IV PRN (08:14)
[2019-02-02] MEDS: COLACE PO SCH ×2 (08:15→20:54)
[2019-02-02] MEDS: ICAR-C PO SCH (08:15)
[2019-02-02] MEDS: HEMOCYTE PLUS CAPSULE PO SCH (08:15)
[2019-02-02] MEDS: MYCOSTATIN SUSP PO SCH ×4 (08:15→20:53)
[2019-02-02] MEDS: CORTEF PO SCH (08:15)
[2019-02-02] MEDS: COENZYME Q10 PO SCH (08:15)
[2019-02-02] MEDS: BIOTIN PO SCH (08:17)
[2019-02-02] MEDS: OXYCONTIN PO SCH ×2 (08:17→20:54)
[2019-02-02] MEDS ORDERED: PRILOSEC PO SCH (09:00)
--- NOTE | 2019-02-02 10:30 | INFECTIOUS DISEASE PROGRESS NO ---
DATE: 02/02/2019 PRESENT ILLNESS: The patient most likely has an infected right chest Port-A-Cath. The patient also has nodules in his lungs as seen on CT scan, most likely these nodules represent metastatic colon cancer, but I think it is possible that they could be infectious in nature. The patient also has oral candidiasis. MEDICATIONS: The patient is on a combination of cefepime, daptomycin, and nystatin swish and swallow. PHYSICAL EXAMINATION: Vital Signs: Temperature maximum was 103 now it is 99.2, pulse 90, respirations 17, blood pressure 106/69. General: This is an obese, somewhat ill-appearing and lethargic middle-aged male. He is in no acute distress. Head, eyes, ears, nose, and throat: He can hear my spoken words and see near objects. The white coating on his tongue is smaller in size. Neck: No meningismus. Thorax: The patient had his old Port-A-Cath removed over guidewire and a new triple-lumen catheter was slid over the wire back into the same location that the original Port-A-Cath was in. The incision at that area is intact there is no erythema or purulence noted. Lungs: Clear to auscultation. Cardiovascular: Heart rate is regular. Abdomen: Soft and nontender. Neurologic: The patient is lethargic. He apparently received some medication to help him sleep last night. He does not have a tremor. LAB AND RADIOLOGY: 1 of 2 blood cultures is growing diphtheroids which is a contaminant. CEA is 183.3. ASSESSMENT AND PLAN: The patient most likely has an infected Port-A-Cath. He also has oral candidiasis. I will continue cefepime and daptomycin as well as nystatin. No antibiotic treatment of the positive blood culture is needed. COMORBIDITY: Patient has metastatic colon cancer. cc: Mario Montero MD [facility]
--- NOTE | 2019-02-02 12:23 | INFECTIOUS DISEASE PROGRESS NO ---
DATE: 02/02/2019 The patient has had 2 blood cultures drawn, one of the blood cultures grew a gram-positive prabhu that the head of the Microbiology Department, April, thinks is a diphtheroid, and she feels that it is a contaminant and not a pathogen. For now, I am going to continue with the current antibiotics, namely the namely daptomycin and cefepime pending further culture results. cc: Mario Montero MD
[2019-02-02 13:07] LABS: AGAP 10; BUN 8 mg/dL (8-22); CALCIUM 8.7 mg/dL (8.8-10.2); CHLORIDE 100 mmol/L (98-107); COSMO 272; CREATININE 0.7 mg/dL (0.7-1.2); ESTIMATED GFR > 60; GLUCOSE 126 mg/dL (70-104); POTASSIUM 4.1 mmol/L (3.5-5.1); SODIUM 136 mmol/L (136-145); TCO2 26 mmol/L (25-35)
[2019-02-02] MEDS: DILAUDID IV PRN (13:20)
[2019-02-02 13:32] LABS: BASO# 0.01 X1000 (0.0-0.2); BASO% 0.4 % (0.0-0.8); EOS# 0.01 X1000 (0.0-0.7); EOS% 0.4 % (0.0-10.0); HEMATOCRIT 32.7 % (42.0-52.0); HEMOGLOBIN 10.5 g/dL (14.0-18.0); LYMPH# 0.64 X1000 (1.2-3.4); LYMPH% 27.4 % (20.5-51.1); MCH 30.7 PG (27-31); MCHC 32.1 g/dL (33-37); MCV 95.6 FL (81-99); MONO# 0.23 X1000 (0.11-0.59); MONO% 9.8 % (1.7-9.3); MPV 9.7 FL (7.4-10.4); NEUT# 1.45 X1000 (1.4-6.5); PLT 65 X1000 (130-400); RBC 3.42 XMIL (4.7-6.1); WBC 2.34 X1000 (4.8-10.8)
[2019-02-02] MEDS: CUBICIN 600 MG in NS 100 ML IV SCH (17:22)
[2019-02-02] MEDS: XARELTO PO SCH (17:25)
[2019-02-02] MEDS ORDERED: CIPRO 400 MG/D5W 400 MG/200 ML IVPB IV SCH (17:30)
--- NOTE | 2019-02-02 18:16 | PROGRESS NOTE ---
DATE: 02/02/2019 SUBJECTIVE: The patient has no major complaints. OBJECTIVE: vital signs: The patient has persistent fevers. Blood pressure 90/72, heart rate 74, respiratory 18. Temperature 98.3 degrees, but his T-max was 103 degrees last night and he has pretty much been persistently febrile since during that time. LABORATORY DATA: White count 2, hemoglobin and hematocrit 10 and 32, platelets 65,000. Basic was normal. CA of 183. PROBLEM LIST: 1. Bacteremia port infection. He has gram-positive rods growing out of one blood culture. It is unclear what that is consistent with. Could be a contaminant, but could not be a contaminant. Now apparently note he has 2 positive blood cultures. So it is suspicious that this is not a contaminant with his persistent fevers. This is very concerning despite the fact that the port infection is gone, but we will see what grows out of the blood culture. 2. Metastatic colon cancer. He is stable. We are going to continue to monitor. He is doing pretty well all things considered. He is on OxyContin which apparently he has not been taking at home very well and seems under better pain control. 3. Anemia. DISPOSITION: Pending ID of his bug. His port has been removed. We will need to consider IV therapy at home most likely. We will continue to follow. cc: Andrew Simmons MD
--- NOTE | 2019-02-02 19:34 | HEMO/ONC PROGRESS NOTE ---
I have seen and examined the patient and the above note reflects my history, physical exam, assessment and plan. Cheri Dominguez MDDATE: 02/02/2019 SUBJECTIVE: Mr. Jarrell is resting comfortably in his bed with his mother at bedside. He is in no acute distress. He reports no new complaints. VITAL SIGNS: Temperature 98.8 degrees, heart rate 85, respirations 18, blood pressure 94/64, O2 saturation 95% on 2 L nasal cannula. LAB STUDIES: White blood cells today are 2.34, hemoglobin 10.5, platelet count 65,000. OBJECTIVE: Cardiovascular: S1, S2 heard. No murmurs, gallops or rubs appreciated. Respiratory: Coarse breath sounds. Gastrointestinal: Abdomen is soft. Extremities: Some trace edema in bilateral lower extremities. ASSESSMENT AND PLAN: 1. Stage IV colon cancer. The patient has been off his treatment now for a little over a month. No plans to treat while the patient is in the hospital and acutely ill. 2. Port infection with bacteremia, presumed. Patient is now status post port removal. Dr. Montero is on board and providing recommendations and treatment with antibiotics. The patient did spike a fever last night. He continues to have rigors too off and on. Continue to follow along. 3. Pain. This is secondary to his stage IV colon cancer. Continue current pain management. 4. Deep venous thrombosis, PTE. Patient is currently on Xarelto. Continue for now. 5. Thrombocytopenia. Patient's platelet count has fallen further to 65,000. We have previously checked a DIC panel, which was negative. His platelet count continues to decline. We will recheck in a couple of days. No evidence of abnormal bleeding at this time. This is likely due to his acute illness. Dictated by MARY Kulkarni for Cheri Dominguez MD cc: Cheri Dominguez MD I have seen and examined the patient and the above note reflects my history, physical exam, assessment and plan. Cheri Dominguez MD [facility] HOSPITALBlanquita
[2019-02-02] MEDS: AMBIEN PO SCH (20:53)
[2019-02-02] MEDS: NEXIUM IV SCH (20:54)
[2019-02-02] MEDS: LYRICA PO SCH (20:54)
--- NOTE | 2019-02-02 23:43 | PROVIDER PROGRESS NOTE ---
Progress Note S: No N/V/CP, SOB. His upper RUQ pain is typical for his known malignancy pain. He also reports LUQ pain. Tolerating diet. Requesting vegan tray. O: Last Vital Signs Temp 99.5 F 02/03/19 00:00 Pulse 103 H 02/03/19 00:00 Resp 17 02/03/19 00:00 BP 103/62 02/03/19 00:00 Pulse Ox 94 L 02/03/19 00:00 Height 6 ft Weight 221 lb GEN: awake, alert, NAD HEENT: anicteric, MMM NECK: supple CV: tachycardic, regular PULM: CTAB, no wheezing ABD: soft, TTP RUQ/LUQ, no rebound or guarding, BS present; no ascites EXT: no cce NEURO: nonfocal LABS: 02/02/19 02/02/19 02/02/19 04:55 04:55 12:43 WBC 2.34 Hgb 10.5 Plt Count 65 Sodium 136 Potassium 4.1 Chloride 100 Carbon Dioxide 26 Anion Gap 10 BUN 8 Creatinine 0.7 Glucose 126 H Carcinoembryonic Ag 183.8 H Free T4 1.48 IMPRESSION AND PLAN: Mr. Kenton Jarrell is a 48 year old man with metastatic colon cancer with liver metastasis who presented with sepsis from port infection. GI consulted for upper abdominal pain. RUQ pain is typical of his underlying malignancy. He also reports some LUQ pain. He is having bowel movements. US negative for biliary obstruction. No pancreatitis. No N/V. He is tolerating PO. # Abdominal pain: likely from underlying malignancy; continue pain control, PPI; no indication for endoscopic evaluation at this time # Metastatic colon cancer: defer mgmt to oncology # Sepsis: secondary to port infection; on abx per ID # Pancytopenia: secondary to chemo # FEN: continue bowel regimen Will sign off. Please call with questions
[2019-02-03] MEDS: DILAUDID IV PRN ×3 (01:46→19:20)
[2019-02-03 05:57] LABS: BASO# 0.01 X1000 (0.0-0.2); BASO% 0.4 % (0.0-0.8); EOS# 0.04 X1000 (0.0-0.7); EOS% 1.4 % (0.0-10.0); HEMATOCRIT 30.1 % (42.0-52.0); HEMOGLOBIN 9.6 g/dL (14.0-18.0); LYMPH# 1.41 X1000 (1.2-3.4); MCH 30.4 PG (27-31); MCHC 31.9 g/dL (33-37); MCV 95.3 FL (81-99); MONO# 0.25 X1000 (0.11-0.59); MONO% 8.9 % (1.7-9.3); MPV 9.4 FL (7.4-10.4); NEUT# 1.11 X1000 (1.4-6.5); NEUT% 39.3 % (42.2-75.2); PLT 61 X1000 (130-400); RBC 3.16 XMIL (4.7-6.1); RDW 15.7 % (11.5-14.5); WBC 2.82 X1000 (4.8-10.8)
[2019-02-03 06:08] LABS: AGAP 10; BUN 8 mg/dL (8-22); CALCIUM 8.7 mg/dL (8.8-10.2); CHLORIDE 106 mmol/L (98-107); COSMO 285; CREATININE 0.7 mg/dL (0.7-1.2); ESTIMATED GFR > 60; GLUCOSE 96 mg/dL (70-104); POTASSIUM 3.8 mmol/L (3.5-5.1); SODIUM 144 mmol/L (136-145); TCO2 28 mmol/L (25-35)
[2019-02-03] MEDS ORDERED: VANCOMYCIN IV PER PHARMACY MISC SCH (06:45)
[2019-02-03] MEDS ORDERED: GENTAMICIN IV PER PHARMACY MISC SCH (07:15)
--- NOTE | 2019-02-03 07:27 | INFECTIOUS DISEASE PROGRESS NO ---
DATE: 02/03/2019 PRESENT ILLNESS: The patient has two separate blood cultures that are positive. The microbiology laboratory thinks most likely that the organism is going to be a diphtheroid, such as corynebacterium. Most likely, the bacteremia originated from the patient's Port-A-Cath. The patient also has oral candidiasis. MEDICATIONS: Currently, the patient is on cefepime, daptomycin, ciprofloxacin, and nystatin swish and swallow. PHYSICAL EXAMINATION: Vital Signs: Temperature 98.5 degrees, pulse 75, respirations 17, blood pressure 90/60. General: This is an obese, initially lethargic, middle-aged male. He is in no acute distress. After I had come back to talk to the patient again, he was fully alert. HEENT: He can hear my spoken words and see near objects. He still has some white coating on his tongue, but it is smaller in size. Neck: No pain with movement. Thorax: The patient's Port-A-Cath site shows that there is an IV put in where the Port-A-Cath was. The site is not erythematous or purulent. Lungs: Clear to auscultation. Cardiovascular: Heart rate is regular. Abdomen: Soft and nontender. Neurologic: The patient is awake. He can move his extremities. There is no tremor. IMAGING AND LABORATORY DATA: Two of the patient's blood cultures are growing most likely diphtheroids. Because two of the blood cultures are positive, this makes this a pathogen and not a contaminant. The patient's CBC shows a white count of 2820, hemoglobin 9.6, and platelet count 61,000. Creatinine is 0.7. GFR is greater than 60. Sputum cultures grew normal cammie. The culture from the patient's Port-A-Cath site remains negative. Two blood cultures drawn on 01/31/2019 are growing a gram-positive prabhu, which the lab thinks will be a diphtheroid. ASSESSMENT AND PLAN: The patient has a bacteremia originated from his Port-A-Cath. I am going to discontinue cefepime, daptomycin, and ciprofloxacin, and instead start the patient on penicillin and gentamicin. Some of the side effects of the antibiotics, including rash, diarrhea, renal toxicity, and ototoxicity have been explained to the patient, who agrees with treatment. Also, I am going to request Dr. Boo removed the IV from the Port-A-Cath site. COMORBIDITIES: The patient has metastatic colon cancer. cc: Mario Montero MD
[2019-02-03] MEDS ORDERED: GENTAMICIN 160 MG in NS 100 ML IV SCH (09:00)
[2019-02-03] MEDS: COENZYME Q10 PO SCH (09:10)
[2019-02-03] MEDS: ICAR-C PO SCH (09:10)
[2019-02-03] MEDS: MYCOSTATIN SUSP PO SCH ×4 (09:10→21:10)
[2019-02-03] MEDS: CORTEF PO SCH (09:11)
[2019-02-03] MEDS: COLACE PO SCH ×2 (09:11→21:10)
[2019-02-03] MEDS: HEMOCYTE PLUS CAPSULE PO SCH (09:12)
[2019-02-03] MEDS: NEXIUM PO SCH ×2 (09:12→21:10)
[2019-02-03] MEDS: OXYCONTIN PO SCH ×2 (09:13→22:18)
[2019-02-03] MEDS: NS 1,000 ML IV SCH ×2 (09:13→22:18)
[2019-02-03] MEDS: MIRALAX PO SCH (09:15)
[2019-02-03] MEDS: BIOTIN PO SCH (09:15)
--- NOTE | 2019-02-03 10:22 | INFECTIOUS DISEASE PROGRESS NO ---
DATE: 02/03/2019 ADDENDUM: I talked to Haven in Microbiology, and she still feels that the blood cultures are growing diphtheroids. The complete identification will be out tomorrow. I told her to send the patient's organism off for susceptibility testing, and specifically I asked for penicillin, gentamicin, vancomycin, and daptomycin. The patient also, on the culture from the chest site where he had his Port-A-Cath that was removed, now is growing a gram-positive coccus that will not be identified today. Possibly, it will be for tomorrow or the next day. Until I get the identification of the organism, I am going to restart the patient on daptomycin. cc: Mario Montero MD
[2019-02-03] MEDS: PENICILLIN G POTASSIUM 5 MILL.UNITS in NS 100 ML IV SCH ×3 (11:05→23:01)
[2019-02-03] MEDS ORDERED: RELISTOR SUBQ ONE ×2 (11:42→14:25)
[2019-02-03] MEDS: ZOFRAN IV PRN (14:09)
[2019-02-03] MEDS ORDERED: CUBICIN 600 MG in NS 100 ML IV SCH (16:45)
[2019-02-03] MEDS: XARELTO PO SCH (16:52)
--- NOTE | 2019-02-03 19:47 | HEMO/ONC PROGRESS NOTE ---
DATE: 02/03/2019 SUBJECTIVE: Mr. Jarrell is lying in his hospital bed. His mother is at bedside and he has no acute complaints today. Reports that he is starting to feel some better. OBJECTIVE: Vital Signs: Temperature 98.9 degrees, heart rate 83, respirations 13, blood pressure 109/79, O2 saturation 98% on room air. LABS AND STUDIES: White blood cells 2.82, hemoglobin 9.6, platelet count 61,000. Sodium 144, potassium 3.8, chloride 106, CO2 28, BUN 8, creatinine 0.7, and glucose 96. PHYSICAL EXAMINATION: CV: S1, S2 heard. No murmurs, gallops, rubs appreciated. Respiratory: Chest is clear with normal respiratory effort. Gastrointestinal: Abdomen is soft. Normoactive bowel sounds noted at this time. Extremities: Patient does have trace bilateral lower extremity edema noted. ASSESSMENT AND PLAN: 1. Metastatic colorectal cancer. The patient's treatment is currently on hold. He will follow up with us once he is discharged, and we will discuss outpatient treatment at that time. 2. Sepsis, with port infection. Infectious Disease is involved and is managing the patient's antibiotics. He did not have a fever overnight, so it does seem that things are improving. Continue management of his infection per Infectious Disease. 3. Thrombocytopenia. We will monitor closely. 4. History of deep venous thrombosis and pulmonary thromboembolism. Continue Xarelto. 5. Pain. Seems to be well managed currently. Dictated by MARY Kulkarni for Cheri Dominguez MD cc: Cheri Dominguez MD I have seen and examined the patient and the above note reflects my history, physical exam, assessment and plan. Cheri OTTO
[2019-02-03] MEDS: GENTAMICIN 160 MG in NS 100 ML IV SCH (21:10)
[2019-02-03] MEDS: LYRICA PO SCH (21:10)
[2019-02-03] MEDS: AMBIEN PO SCH (21:10)
[2019-02-04] MEDS: GENTAMICIN 160 MG in NS 100 ML IV SCH (03:26)
[2019-02-04] MEDS: PENICILLIN G POTASSIUM 5 MILL.UNITS in NS 100 ML IV SCH ×5 (03:26→18:08)
[2019-02-04] MEDS: NS 1,000 ML IV SCH ×3 (03:27→13:33)
--- NOTE | 2019-02-04 07:23 | INFECTIOUS DISEASE PROGRESS NO ---
DATE: 02/04/2019 PRESENT ILLNESS: The patient has a diphtheroid bacteremia, 2 separate blood cultures are growing diphtheroids. Also, the patient's culture from the chest where the patient's Port-A-Cath was turns out to be growing diphtheroids also. The Gram stain that was done from that area says that it is gram-positive cocci. However, I have just talked to the microbiology lab and they repeated the Gram stain and Gram positive rods were present and not gram-positive cocci. Also, the culture from the Port-A-Cath site is growing diphtheroids as well. The patient also has oral candidiasis. MEDICATIONS: For the patient's diphtheroids, the patient is receiving a combination of penicillin and gentamicin. I told the pharmacy that because the patient's absolute neutrophil count is above 1000, that they can go with once a day dosing and not every 8 hour dosing which they use for neutropenia. I told them that even though the patient's absolute neutrophil count is less than normal if it is above 1000, then I count that as being normal from an Infectious Disease point of view and it does not require isolation or dosing of gentamicin every 8 hours rather than once a day. The patient also is receiving nystatin swish and swallow for his oral candidiasis. I am waiting now for the susceptibility data to come back regarding the diphtheroids organisms. PHYSICAL EXAMINATION: Vital Signs: Temperature is 97.8 degrees, pulse 89, respirations 15, blood pressure is 108/82. General: This is a lethargic, obese, middle-aged male. He does not appear to be in any acute distress. Head, eyes, ears, nose, and throat: He can hear my spoken words and see near objects. His white coating of the tongue is going away gradually. Neck: No pain with movement. Lungs: Clear to auscultation. Cardiovascular: Regular heart rate. Thorax: The site where the patient's Port-A-Cath was removed is not erythematous or swollen and the IV catheter that was in there has been removed also. Lungs: Clear to auscultation. Cardiovascular: Regular heart rate. Abdomen: Soft and nontender. Neurologic: The patient is lethargic but he did carry on a coherent conversation and he did move his extremities to request. LAB AND X-RAY: There is no new radiographic study. As mentioned above both the blood cultures and the culture coming from the patient's chest are growing diphtheroids and the diphtheroids have been sent off for susceptibility testing. There is no CBC or BMP for today. ASSESSMENT AND PLAN: Patient has diphtheroid bacteremia which originated from his Port-A-Cath and the Port-A-Cath has been removed and the other catheter that was in there has been removed also. I am waiting for the susceptibility testing, but until that time, I am going to treat with penicillin and gentamicin. I have discontinued daptomycin. COMORBIDITIES: He has metastatic colon cancer. cc: Mario Montero MD
[2019-02-04] MEDS: COLACE PO SCH ×2 (08:06→21:26)
[2019-02-04] MEDS: CORTEF PO SCH (08:06)
[2019-02-04] MEDS: HEMOCYTE PLUS CAPSULE PO SCH (08:07)
[2019-02-04] MEDS: NEXIUM PO SCH ×2 (08:07→21:26)
[2019-02-04] MEDS: MYCOSTATIN SUSP PO SCH ×4 (08:07→21:26)
[2019-02-04] MEDS: BIOTIN PO SCH (08:07)
[2019-02-04] MEDS: COENZYME Q10 PO SCH (08:07)
[2019-02-04] MEDS: ICAR-C PO SCH (08:07)
[2019-02-04] MEDS ORDERED: MIRALAX PO SCH (09:00)
[2019-02-04] MEDS ORDERED: NS 250 ML ONE (09:38)
[2019-02-04] MEDS: ZOFRAN IV PRN (10:02)
[2019-02-04] MEDS: DILAUDID IV PRN ×4 (10:02→21:33)
[2019-02-04 10:19] LABS: INR 1.12; PROTIME 14.6 Seconds (11.0-16.0)
[2019-02-04] MEDS: MIRALAX PO SCH (11:32)
[2019-02-04] MEDS: OXYCONTIN PO SCH (11:32)
--- NOTE | 2019-02-04 14:39 | INFECTIOUS DISEASE PROGRESS NO ---
DATE: 02/04/2019 ADDENDUM: I was discussing with the patient's about how the patient got infected with diphtheroids, and she explained to me approximately 2 weeks ago while the patient was in [facility] getting immunologic therapy, the patient had a lot of diaphoresis and the Port-A-Cath site had sweat underneath the dressing. I think probably at that time is when the patient got infected with diphtheroids because the organism is normal cammie on skin. The patient on the 02 of February had two blood cultures that are negative. Therefore, I think we can go ahead and get the patient's PICC put in. The only thing that we are waiting for now is the susceptibility testing of the diphtheroids organism to the antibiotics I requested, which were penicillin, gentamicin, vancomycin and daptomycin. cc: Mario Montero MD MTDD
[2019-02-04 14:43] LABS: BASO# 0.01 X1000 (0.0-0.2); BASO% 0.4 % (0.0-0.8); EOS# 0.01 X1000 (0.0-0.7); EOS% 0.4 % (0.0-10.0); HEMATOCRIT 31.4 % (42.0-52.0); HEMOGLOBIN 10.2 g/dL (14.0-18.0); LYMPH# 0.92 X1000 (1.2-3.4); LYMPH% 39.5 % (20.5-51.1); MCH 30.4 PG (27-31); MCHC 32.5 g/dL (33-37); MCV 93.7 FL (81-99); MONO# 0.12 X1000 (0.11-0.59); MONO% 5.2 % (1.7-9.3); MPV 9.3 FL (7.4-10.4); NEUT# 1.27 X1000 (1.4-6.5); NEUT% 54.5 % (42.2-75.2); PLT 57 X1000 (130-400); RBC 3.35 XMIL (4.7-6.1); RDW 15.2 % (11.5-14.5); WBC 2.33 X1000 (4.8-10.8)
[2019-02-04] MEDS ORDERED: GENTAMICIN IV SCH (16:00)
[2019-02-04] MEDS ORDERED: NS IV SCH (16:00)
[2019-02-04] MEDS: XARELTO PO SCH (16:43)
[2019-02-04] MEDS: AMBIEN PO SCH (21:26)
[2019-02-04] MEDS: LYRICA PO SCH (21:26)
[2019-02-05] MEDS: PENICILLIN G POTASSIUM 5 MILL.UNITS in NS 100 ML IV SCH ×5 (00:31→23:12)
[2019-02-05] MEDS: DILAUDID IV PRN ×5 (03:46→21:42)
[2019-02-05] MEDS: NS 1,000 ML IV SCH ×2 (03:47→17:30)
[2019-02-05] MEDS: HEMOCYTE PLUS CAPSULE PO SCH (08:11)
[2019-02-05] MEDS: COLACE PO SCH ×2 (08:11→21:43)
[2019-02-05] MEDS: NEXIUM PO SCH ×2 (08:11→21:43)
[2019-02-05] MEDS: CORTEF PO SCH (08:11)
[2019-02-05] MEDS: COENZYME Q10 PO SCH (08:12)
[2019-02-05] MEDS: MIRALAX PO SCH (08:12)
[2019-02-05] MEDS: ICAR-C PO SCH (08:12)
[2019-02-05] MEDS: MYCOSTATIN SUSP PO SCH ×4 (08:12→21:43)
[2019-02-05] MEDS: BIOTIN PO SCH (09:51)
[2019-02-05 11:54] LABS: BASO# 0.01 X1000 (0.0-0.2); BASO% 0.3 % (0.0-0.8); EOS# 0.04 X1000 (0.0-0.7); EOS% 1.3 % (0.0-10.0); HEMOGLOBIN 10.3 g/dL (14.0-18.0); LYMPH# 1.02 X1000 (1.2-3.4); LYMPH% 32.5 % (20.5-51.1); MCH 30.1 PG (27-31); MCHC 32.2 g/dL (33-37); MCV 93.6 FL (81-99); MONO# 0.19 X1000 (0.11-0.59); MONO% 6.1 % (1.7-9.3); MPV 8.8 FL (7.4-10.4); NEUT# 1.88 X1000 (1.4-6.5); NEUT% 59.8 % (42.2-75.2); PLT 52 X1000 (130-400); RBC 3.42 XMIL (4.7-6.1); RDW 15.2 % (11.5-14.5); WBC 3.14 X1000 (4.8-10.8)
[2019-02-05 12:10] LABS: BANDS 4 % (0-1); LYMPHS 38 % (21-51); MONO 6 % (1-9); SEGS 50 % (42-75)
[2019-02-05 12:11] LABS: LARGE PLATELETS 1+
[2019-02-05 12:12] LABS: AGAP 10; BUN 7 mg/dL (8-22); CALCIUM 9.1 mg/dL (8.8-10.2); CHLORIDE 103 mmol/L (98-107); COSMO 280; CREATININE 0.6 mg/dL (0.7-1.2); ESTIMATED GFR > 60; GLUCOSE 107 mg/dL (70-104); SODIUM 141 mmol/L (136-145); TCO2 28 mmol/L (25-35)
--- NOTE | 2019-02-05 15:13 | Extremity Venous Study ---
PROCEDURE NAME: Venous U/S Left Arm - 02/03/2019 STUDY: Left upper extremity venous ultrasound. TRANSPORT DRIVER: Gillian REQUESTING PHYSICIAN: Omari Boo MD INDICATION: Check for blood clots. EXAM FOR COMPARISON: 06/13/2017 FINDINGS: The left upper extremity and neck was visualized along their course. The veins appear compressible with forward flow and no evidence of deep or superficial thrombus on this study. SUMMARY: No deep or superficial venous thrombosis in the left upper extremity or neck. cc: MD Omari Gordon MD
[2019-02-05] MEDS: GENTAMICIN IV SCH (15:51)
[2019-02-05] MEDS: NS IV SCH (15:51)
[2019-02-05] MEDS: XARELTO PO SCH (17:31)
--- NOTE | 2019-02-05 18:53 | INFECTIOUS DISEASE PROGRESS NO ---
DATE: 02/05/2019 PRESENT ILLNESS: Mr. Jarrell has diphtheroid bacteremia which most likely originated from his Port- A-Cath, which has been removed. Unfortunately his second set of blood cultures, although they were negative after 48 hours, 1 out of 2 became positive last night. He is also being treated for an oral candidiasis. MEDICATIONS: He is receiving IV gentamicin per pharmacy dosing and penicillin G 5 million units IV every 6 hours. He is also on nystatin swish and swallow 4 times a day. PHYSICAL EXAMINATION: Vital Signs: Temperature is 98.7 degrees, pulse rate 65, respiratory rate 18, blood pressure 100/65, O2 saturation is 100% on room air. General: This is a chronically ill- appearing middle-aged gentleman. He is sitting up on the side of the bed, currently in no acute distress. HEENT: Atraumatic, normocephalic. Oral mucous membranes are pink and moist, with a mild white coating noted to his tongue. Conjunctivae are pink. Neck: Supple. Trachea is midline. Cardiovascular: Heart rate and rhythm are regular. Normal sinus rhythm on the monitor. Respiratory: Lung sounds are clear to auscultation bilaterally. No work of breathing is noted. Abdomen: Soft, round and nontender. Bowel sounds are active. Integumentary: There is a PICC line in place to the left upper arm. The site is without edema, erythema or drainage. There are also martell to the right chest where the Port-A-Cath has been removed, with no drainage or erythema to the area. Neurologic: He is awake, alert and oriented. He is able to walk around the room independently. LABORATORY AND X-RAY: No labs available today. His blood cultures, which were sterile after 48 hours, have 1 out of 2 which turned positive for diphtheroids last night. Originally he had diphtheroids to the chest Port-A-Cath site as well as in both cultures in the blood. No imaging reports today. ASSESSMENT AND PLAN: Mr. Jarrell is being treated for a diphtheroid bacteremia. Unfortunately, because his blood cultures became positive again last night, in 1 out of 2 of the specimens, we will have to repeat blood cultures again. At the time the most recent cultures were drawn, he was not on his current antibiotic regimen of gentamicin and penicillin, so we are hoping that the next set will be negative. We have put in blood cultures to be drawn in the morning, after which time we may need to wait 3 or 4 days to make sure that there are no diphtheroids that appear in the cultures, since diphtheroids tend to be slow growing. He does have a peripherally inserted central catheter line in, which we will leave at this time. The susceptibility testing for the diphtheroids have been sent to [facility]. I called them, and they have to send the specimen to [facility] which will be done today. Hopefully, by the time he has sterile blood cultures, we will also have the susceptibilities back for the diphtheroids. He still has a white coating to his tongue, which has improved, so we will continue nystatin swish and swallow. These plans have been discussed with and recommended by Dr. Montero. COMORBIDITIES: for Mr. Jarrell include stage IV colon cancer with metastasis to the liver. Dictated by CHRISTINA Robertson for Mario Montero MD cc: Mario Montero MD MTDD
--- NOTE | 2019-02-05 21:28 | PROGRESS NOTE ---
DATE: 02/05/2019 SUBJECTIVE/OBJECTIVE: Blood pressure is 102/71, heart rate 83, respiratory rate 16, temperature 98.3 degrees.Cardiovascular: Regular rate and rhythm. Pulmonary: Bilateral breath sounds. Clear to auscultation. Gastrointestinal: Soft, nontender, nondistended. Bowel sounds are positive. Extremities: No clubbing or cyanosis. Lymphatic: No peripheral edema. Neurological: Nonfocal. LABORATORY DATA: White count is 3, hemoglobin and hematocrit 10 and 32, platelets 52,000. Basic was normal. B12 and folate were normal. PROBLEM LIST: 1. Diphtheroid bacteremia secondary to infected port. Unfortunately, his repeat blood cultures from the , have grown out diphtheroids again, unfortunately. Dr. Montero is on the case and we are looking at treatment options. He is on penicillin and gentamicin, and we may have to change his PICC line before discharge. Of note, patient in [facility] had Aicha's solution, which is, I guess, a solution of heat-killed bacteria, specifically Streptococcus and Serratia, that was infused into his port. Curiously, he is not infected from that, but obviously I do agree with Dr. Montero, his infection is from port contamination when this was infused, which apparently is not uncommon. So, we will continue antibiotics until he is clear, I would assume 2 weeks would be sufficient since the port has been removed, and once his blood cultures are clear. 2. Pancytopenia. He has got some leukopenia, which may be due to infection. He is not neutropenic. His counts are better, so we are going to watch those. I have ordered B12, folate levels, peripheral smear. Hematology/Oncology had been following. I have not seen a note for a couple of days, but I will touch base with Dr. Dominguez because his thrombocytopenia is persistent and the patient is concerned about that. 3. History of deep venous thrombosis. He is on Xarelto. 4. Disposition. Anticipate, well he has to be no longer bacteremic and Dr. Montero may want to replace his PICC before we do anything else. cc: Andrew Simmons MD
[2019-02-05] MEDS: AMBIEN PO SCH (21:43)
[2019-02-05] MEDS: LYRICA PO SCH (21:43)
--- NOTE | 2019-02-05 21:46 | HEMO/ONC PROGRESS NOTE ---
DATE: 02/05/2019 SUBJECTIVE: Mr. Jarrell is resting in his hospital bed. His family is at bedside. He is in no acute distress. He has no acute complaints today. OBJECTIVE: Vital Signs: Temperature 98.7 degrees, heart rate 65, respirations 18, blood pressure 100/65, O2 saturation 100% on room air. LABORATORY: White blood cells today are 3.14, hemoglobin 10.3, platelet count 52,000, neutrophil count is 1.88. Sodium 141, potassium 4.0, chloride 103, CO2 of 28, BUN 7, creatinine 0.6, glucose 107. Glucoses are positive for diphtheroids. ASSESSMENT AND PLAN: 1. Metastatic colorectal cancer. Treatment is on hold. 2. Bacteremia. Source believed to be his port. Port has been removed. He had a central line placed and this has also been removed. He now has a PICC line in place. Intravenous antibiotics per management by Dr. Montero. The patient is now afebrile. Continue to follow cultures. 3. Pain. Seems to be well managed and continue current medications at this time. 4. Pulmonary thromboembolism and deep vein thrombosis history. Patient will be continued on Xarelto. No evidence of bleeding at this time. 5. Low platelet count. We have previously checked his DIC panel, which was within normal limits. Monitor counts throughout his hospitalization. We will sign off for the weekend. We will resume regular followup on Friday. Dictated by MARY Kulkarni for Cheri Dominguez MD cc: Cheri Dominguez MD I have seen and examined the patient and the above note reflects my history, physical exam, assessment and plan. Cheri OTTO
[2019-02-06] MEDS: PENICILLIN G POTASSIUM 5 MILL.UNITS in NS 100 ML IV SCH ×4 (04:39→23:07)
[2019-02-06 06:46] LABS: BASO# 0.01 X1000 (0.0-0.2); BASO% 0.3 % (0.0-0.8); EOS# 0.05 X1000 (0.0-0.7); EOS% 1.4 % (0.0-10.0); HEMATOCRIT 30.2 % (42.0-52.0); LYMPH# 1.72 X1000 (1.2-3.4); LYMPH% 49.7 % (20.5-51.1); MCH 30.8 PG (27-31); MCHC 33.1 g/dL (33-37); MCV 92.9 FL (81-99); MONO# 0.23 X1000 (0.11-0.59); MONO% 6.6 % (1.7-9.3); MPV 8.8 FL (7.4-10.4); NEUT# 1.45 X1000 (1.4-6.5); PLT 50 X1000 (130-400); RBC 3.25 XMIL (4.7-6.1); RDW 14.9 % (11.5-14.5); WBC 3.46 X1000 (4.8-10.8)
[2019-02-06 07:16] LABS: AGAP 11; BUN 7 mg/dL (8-22); CALCIUM 9.1 mg/dL (8.8-10.2); CHLORIDE 104 mmol/L (98-107); COSMO 281; CREATININE 0.6 mg/dL (0.7-1.2); ESTIMATED GFR > 60; GLUCOSE 89 mg/dL (70-104); POTASSIUM 3.9 mmol/L (3.5-5.1); SODIUM 142 mmol/L (136-145); TCO2 27 mmol/L (25-35)
[2019-02-06] MEDS: CORTEF PO SCH (09:00)
[2019-02-06] MEDS: MIRALAX PO SCH (09:00)
[2019-02-06] MEDS: BIOTIN PO SCH (09:03)
[2019-02-06] MEDS: ICAR-C PO SCH (09:03)
[2019-02-06] MEDS: MYCOSTATIN SUSP PO SCH ×4 (09:03→21:34)
[2019-02-06] MEDS: COLACE PO SCH ×2 (09:03→21:34)
[2019-02-06] MEDS: NS 1,000 ML IV SCH ×2 (09:04→23:12)
[2019-02-06] MEDS: HEMOCYTE PLUS CAPSULE PO SCH (09:04)
[2019-02-06] MEDS: COENZYME Q10 PO SCH (09:04)
[2019-02-06] MEDS: NEXIUM PO SCH ×2 (09:04→21:34)
[2019-02-06] MEDS: DILAUDID IV PRN ×4 (09:13→19:36)
--- NOTE | 2019-02-06 11:33 | Diag Imaging Result Doc PS360 ---
EXAM: CHEST-PORTABLE HISTORY: dyspnea TECHNIQUE: Portable chest single view COMPARISON: 02/01/2019 FINDINGS: The lungs are well expanded. The heart is not enlarged. The vessels are not distended. There are no infiltrates. No effusion identified. There are right-sided skin martell. Left-sided PICC line in good position. IMPRESSION: Negative exam. Electronically signed by Tony Jacobo 02/06/2019 11:30 AM
--- NOTE | 2019-02-06 15:45 | PROGRESS NOTE ---
DATE: 02/06/2019 SUBJECTIVE: Patient has no major complaints. OBJECTIVE: Blood pressure is 100/68, heart rate 86, respiratory rate 20, temperature was 100.1 degrees at the highest.Cardiovascular: Regular rate and rhythm. Pulmonary: Bilateral breath sounds clear to auscultation. GI: Soft, nontender, nondistended. Bowel sounds are positive. LABORATORY DATA: White count is 3, hemoglobin and hematocrit 10 and 30, platelets of 50,000. Basic was normal. PROBLEM LIST: 1. Diphtheroid bacteremia associated with infected port. Unfortunately, he had persistent blood cultures just 1 out of 2, though, that was positive for diphtheroids. His blood not had not been quite sterilize before PICC was placed. However, current blood cultures are negative. Hopefully if current blood cultures are negative, we can treat with his current PICC, maybe 2 weeks of treatment at the discretion of Dr. Montero. Will re-evaluate tomorrow. Port has been since removed and PICC will come out once we feel bacteremia is stabilized. 2. Pancytopenia. His white count is slowly coming up. Seems to be doing okay. May be just due to malnutrition and bone marrow suppression. We will continue to follow. 3. Thrombocytopenia. His platelet counts are stable. There is no active bleeding. We will continue to monitor. I do not think this is DIC based on negative labs on admission and he has not further progressed. 4. History of DVT PE. He is on Xarelto. 5. Disposition: Plan for home IV therapy, but that is pending final culture results and sensitivities which we most likely will not get till Friday, so we will continue to follow. cc: Andrew Simmons MD
[2019-02-06] MEDS: GENTAMICIN IV SCH (16:05)
[2019-02-06] MEDS: NS IV SCH (16:05)
[2019-02-06] MEDS: XARELTO PO SCH (17:36)
[2019-02-06] MEDS: AMBIEN PO SCH (21:34)
[2019-02-06] MEDS: LYRICA PO SCH (21:34)
[2019-02-07] MEDS: PENICILLIN G POTASSIUM 5 MILL.UNITS in NS 100 ML IV SCH ×4 (04:47→22:30)
[2019-02-07 07:51] LABS: BASO# 0.02 X1000 (0.0-0.2); BASO% 0.6 % (0.0-0.8); EOS# 0.12 X1000 (0.0-0.7); EOS% 3.3 % (0.0-10.0); HEMATOCRIT 31.1 % (42.0-52.0); LYMPH# 1.57 X1000 (1.2-3.4); LYMPH% 43.6 % (20.5-51.1); MCHC 32.2 g/dL (33-37); MCV 93.4 FL (81-99); MONO# 0.22 X1000 (0.11-0.59); MONO% 6.1 % (1.7-9.3); NEUT# 1.67 X1000 (1.4-6.5); NEUT% 46.4 % (42.2-75.2); PLT 64 X1000 (130-400); RBC 3.33 XMIL (4.7-6.1); RDW 15.1 % (11.5-14.5)
[2019-02-07 08:31] LABS: AGAP 9; BUN 10 mg/dL (8-22); CALCIUM 8.5 mg/dL (8.8-10.2); CHLORIDE 105 mmol/L (98-107); COSMO 280; CREATININE 0.6 mg/dL (0.7-1.2); ESTIMATED GFR > 60; GLUCOSE 92 mg/dL (70-104); POTASSIUM 4.2 mmol/L (3.5-5.1); SODIUM 141 mmol/L (136-145); TCO2 27 mmol/L (25-35)
[2019-02-07] MEDS: DILAUDID IV PRN ×4 (10:21→21:18)
[2019-02-07] MEDS: COENZYME Q10 PO SCH (10:26)
[2019-02-07] MEDS: BIOTIN PO SCH (10:26)
[2019-02-07] MEDS: COLACE PO SCH ×2 (10:26→21:12)
[2019-02-07] MEDS: CORTEF PO SCH (10:27)
[2019-02-07] MEDS: NEXIUM PO SCH ×2 (10:27→21:12)
[2019-02-07] MEDS: HEMOCYTE PLUS CAPSULE PO SCH (10:27)
[2019-02-07] MEDS: MIRALAX PO SCH (10:28)
[2019-02-07] MEDS: MYCOSTATIN SUSP PO SCH ×4 (10:28→21:12)
[2019-02-07] MEDS: ICAR-C PO SCH (10:29)
[2019-02-07] MEDS: NS 1,000 ML IV SCH ×2 (11:12→14:07)
[2019-02-07] MEDS: GENTAMICIN IV SCH (16:45)
[2019-02-07] MEDS: NS IV SCH (16:45)
[2019-02-07] MEDS: XARELTO PO SCH (16:48)
--- NOTE | 2019-02-07 16:59 | PROGRESS NOTE ---
DATE: 02/07/2019 SUBJECTIVE: Patient has no major complaints. OBJECTIVE: Blood pressure is 107/69, heart rate 71, respiratory 16, temperature 98.7 degrees.Cardiovascular: Regular rate, rhythm. Pulmonary: Bilateral breath sounds. Clear to auscultation. GI: Soft, nontender, nondistended. Bowel sounds are positive. LABORATORY DATA: White count is 3.6, hemoglobin and hematocrit 10 and 31, platelets 64,000. Basic was normal. PROBLEM LIST: 1. Diphtheroid bacteremia associated with infected port and persistent positive blood cultures. Plan is for [address] antibiotics [address] Dr[address] Montero, which I am not sure if it will be just penicillin or penicillin, gentamicin, most likely just penicillin, gentamicin, probably maintain until he is no longer bacteremic, so far that is the case. Repeat blood cultures from yesterday are negative. 2. Pancytopenia. His counts are slowly improving. White count is improving. Hemoglobin and hematocrit is stable. Platelet count is increasing. 3. Thrombocytopenia again is slowly improving. May be a more functional issue there. 4. History of deep vein thrombosis pulmonary embolism, currently on Xarelto. DISPOSITION: Anticipate he will need home IV therapy but we do not have final data, Friday will probably be the 1st day he is available for treatments or 1st available for discharge if his blood cultures are clear. cc: Andrew Simmons MD
[2019-02-07] MEDS: AMBIEN PO SCH (21:12)
[2019-02-07] MEDS: LYRICA PO SCH (21:12)
[2019-02-07] MEDS: ZOFRAN IV PRN (21:16)
[2019-02-08] MEDS: NS 1,000 ML IV SCH ×2 (04:21→18:47)
[2019-02-08] MEDS: PENICILLIN G POTASSIUM 5 MILL.UNITS in NS 100 ML IV SCH ×4 (04:21→22:32)
[2019-02-08 05:51] LABS: BASO% 0.3 % (0.0-0.8); HEMATOCRIT 30.1 % (42.0-52.0); HEMOGLOBIN 9.8 g/dL (14.0-18.0); LYMPH% 44.5 % (20.5-51.1); MCH 30.5 PG (27-31); MCHC 32.6 g/dL (33-37); MCV 93.8 FL (81-99); MONO% 7.1 % (1.7-9.3); MPV 9.5 FL (7.4-10.4); NEUT# 1.64 X1000 (1.4-6.5); NEUT% 45.1 % (42.2-75.2); PLT 69 X1000 (130-400); RBC 3.21 XMIL (4.7-6.1); RDW 15.1 % (11.5-14.5); WBC 3.64 X1000 (4.8-10.8)
[2019-02-08 05:52] LABS: BASO# 0.01 X1000 (0.0-0.2); EOS# 0.11 X1000 (0.0-0.7); LYMPH# 1.62 X1000 (1.2-3.4); MONO# 0.26 X1000 (0.11-0.59)
[2019-02-08 06:38] LABS: AGAP 11; BUN 7 mg/dL (8-22); CHLORIDE 103 mmol/L (98-107); COSMO 281; CREATININE 0.7 mg/dL (0.7-1.2); ESTIMATED GFR > 60; GLUCOSE 88 mg/dL (70-104); POTASSIUM 4.2 mmol/L (3.5-5.1); SODIUM 142 mmol/L (136-145); TCO2 28 mmol/L (25-35)
[2019-02-08] MEDS: DILAUDID IV PRN ×3 (09:14→22:31)
[2019-02-08] MEDS: ZOFRAN IV PRN (09:20)
[2019-02-08] MEDS: COENZYME Q10 PO SCH (09:25)
[2019-02-08] MEDS: COLACE PO SCH ×2 (09:25→20:37)
[2019-02-08] MEDS: MYCOSTATIN SUSP PO SCH ×4 (09:25→20:37)
[2019-02-08] MEDS: HEMOCYTE PLUS CAPSULE PO SCH (09:26)
[2019-02-08] MEDS: ICAR-C PO SCH (09:26)
[2019-02-08] MEDS: BIOTIN PO SCH (09:26)
[2019-02-08] MEDS: NEXIUM PO SCH ×2 (09:26→20:37)
[2019-02-08] MEDS: CORTEF PO SCH ×2 (09:26→20:37)
[2019-02-08] MEDS: MIRALAX PO SCH (09:27)
[2019-02-08] MEDS ORDERED: LACTULOSE PO PRN (09:43)
[2019-02-08] MEDS: PERCOCET-10 PO PRN (11:07)
--- NOTE | 2019-02-08 14:52 | HEMO/ONC PROGRESS NOTE ---
DATE: 02/08/2019 SUBJECTIVE: Mr. Jarrell reports that he has no acute complaints. He is anxious and would like to go home as soon as possible. LABORATORY DATA: White blood cells are 3.64, hemoglobin 9.8, platelet count 69,000. Blood cultures drawn on 02/06/2019 are negative but this is not a final reading. PHYSICAL EXAMINATION: CV: S1, S2 heard. No murmurs, no murmurs, gallops, or rubs. Respiratory: Normal respiratory effort. Gastrointestinal: Abdomen is nondistended. Extremities: No edema. ASSESSMENT AND PLAN: 1. Metastatic colorectal cancer. Treatment is on hold currently. He will follow up as an outpatient to discuss resuming treatment once he has recovered from his acute illness. 2. Bacteremia. Management per Infectious Disease. Waiting on cultures and final susceptibility. Hopefully, the patient will be able to go home mid-week. He will need IV antibiotics which will be per the direction of Dr. Montero. 3. Pancytopenia. This is slowly improving. His thrombocytopenia may be secondary to antibiotics. We will continue to monitor. No intervention needed at this time though. Dictated by MARY Kulkarni for Cheri Dominguez MD cc: Cheri Dominguez MD I have seen and examined the patient and the above note reflects my history, physical exam, assessment and plan. Cheri OTTO
--- NOTE | 2019-02-08 16:54 | INFECTIOUS DISEASE PROGRESS NO ---
DATE: 02/08/2019 PRESENT ILLNESS: Patient has a diphtheroid bacteremia which originated from his right chest Port- A-Cath which has been removed. We obtained blood cultures and at the 48 hour reading, the repeat blood cultures were sterile. However later that night, one of the blood cultures was positive for diphtheroids. MEDICATIONS: The patient is on gentamicin 560 mg IV every 24 hours and aqueous penicillin 5 million units IV every 6 hours. PHYSICAL EXAMINATION: Vital Signs: Temperature is 98.9 degrees, pulse 94, respirations 12, blood pressure 101/60. General: This is an obese, middle-aged male. He is in no acute distress. Head/eyes/ears/nose/throat: He can hear my spoken words and see near objects. I did not see any white coating on his tongue. Neck: No pain with movement of his neck. Lungs: Clear to auscultation. Cardiovascular: Heart rate was regular. Abdomen: Soft and nontender. Extremities: The patient has a PICC in the left arm. The site is not erythematous or purulent. Thorax: The Port-A-Cath site has no swelling or erythema. Neurologic: Patient is alert. He can move his extremities and walk. He does not have a tremor. LAB AND X-RAY: The patient's blood culture reading at 48 hours is negative as of this morning. CBC shows a white count of 3640, hemoglobin 9.8, and platelet count 69,000. Creatinine is 0.7. GFR is greater than 60. Chest x-ray shows no infiltrates. ASSESSMENT AND PLAN: I plan to treat the patient for a total of 2 weeks for his diphtheroid bacteremia. Day 1 of treatment will be the first day that the patient's repeat blood cultures are sterile. For now, the patient will be on aqueous penicillin and gentamicin both given IV in the doses as mentioned above. Hopefully, the blood cultures will not turn positive tonight like they did the last time. The patient's organism has been sent to the [facility] for susceptibility testing. The results of that are still pending. I have gone ahead and put in a consult for [facility] to supply the patient's antibiotics at home. Assuming that the repeat blood cultures drawn 2 days ago are sterile, the patient will need the penicillin and gentamicin for 12 more days to complete a 2-week treatment course. COMORBIDITIES: The patient has colon cancer metastatic to the liver. cc: Mario Montero MD
[2019-02-08] MEDS: NS IV SCH (17:07)
[2019-02-08] MEDS: GENTAMICIN IV SCH (17:07)
[2019-02-08] MEDS: XARELTO PO SCH (17:08)
--- NOTE | 2019-02-08 18:26 | PROGRESS NOTE ---
DATE: 02/08/2019 SUBJECTIVE: He does not feel as well today, more pain, but the change in pain medicine has made him feel better. In any case he seems to be doing okay. Blood pressures have been on the low end, but stable. He does require pain medication fairly frequently, so I am not sure if that may be contributing to his issue, although interestingly enough, we just have him on Percocet. We do not have him on any other pain medication now. That is incorrect. He does have some orders for Dilaudid, but we are going to try to use Percocet first. PHYSICAL EXAMINATION: Vital signs: Blood pressure 101/60, heart rate 94, respiratory 18, temperature 98.9 degrees 98% on room air. Cardiovascular: Regular rate and rhythm. Pulmonary: Bilateral breath sounds. Clear to auscultation. GI: Soft, nontender, nondistended. Bowel sounds are positive. LABORATORY DATA: 1. White count 3, hemoglobin and hematocrit 9 and 30, platelets 69,000. Basic was normal. Micro is still normal plan diphtheroid bacteremia. Plan for 2 weeks of antibiotics. I anticipate discharge hopefully tomorrow. The family is, I think arguing to some degree, to stay because they did not want to go into the susceptibilities or back, which is reasonable, but is not necessarily thinking through the process. Because if the penicillin and gentamicin have sterilize the blood and they are effective, but I get a sense there is a concern for a reason to stay. But in any case, we will follow Dr. Montero's recommendations. 2. Pancytopenia. His white count is trending upwards. His hemoglobin and hematocrit is essentially stable. Platelets are stable. He reports a dark stool, but he takes coffee ground enemas. The was concerned, because she says his heart rate went up to 150. This has never been documented though. I checked orthostatics on him and they were essentially negative. He did have a drop in his systolic of 10 points, but he needs 20 points drop in his diastolic of 10 points, which he does not. So, he is not orthostatic. He is on some fluids. 3. History of deep venous thrombosis on Xarelto. We have ordered a blood test, so we will continue to follow. cc: Andrew Simmons MD
[2019-02-08] MEDS: AMBIEN PO SCH (20:37)
[2019-02-08] MEDS: LYRICA PO SCH (20:37)
[2019-02-09] MEDS: PENICILLIN G POTASSIUM 5 MILL.UNITS in NS 100 ML IV SCH (05:31)
[2019-02-09] MEDS: NS 1,000 ML IV SCH ×3 (05:31→21:05)
[2019-02-09 07:24] LABS: BASO# 0.01 X1000 (0.0-0.2); BASO% 0.3 % (0.0-0.8); EOS# 0.12 X1000 (0.0-0.7); EOS% 3.7 % (0.0-10.0); HEMATOCRIT 31.2 % (42.0-52.0); LYMPH# 1.47 X1000 (1.2-3.4); MCH 30.2 PG (27-31); MCHC 32.1 g/dL (33-37); MCV 94.3 FL (81-99); MONO# 0.26 X1000 (0.11-0.59); MPV 9.4 FL (7.4-10.4); NEUT# 1.41 X1000 (1.4-6.5); PLT 75 X1000 (130-400); RBC 3.31 XMIL (4.7-6.1); RDW 15.7 % (11.5-14.5); WBC 3.27 X1000 (4.8-10.8)
[2019-02-09 08:05] LABS: ALB/GLOB RATIO 1.6; ALBUMIN 3.8 g/dL (3.5-5.0); DIRECT BILIRUBIN 0.1 mg/dL (0.00-0.20); TOTAL BILIRUBIN 0.44 mg/dL (0.20-1.00); TOTAL PROTEIN 6.2 g/dL (6.3-8.3)
[2019-02-09 08:07] LABS: AGAP 11; BUN 5 mg/dL (8-22); CALCIUM 9.2 mg/dL (8.8-10.2); CHLORIDE 103 mmol/L (98-107); COSMO 280; CREATININE 0.6 mg/dL (0.7-1.2); ESTIMATED GFR > 60; GLUCOSE 91 mg/dL (70-104); POTASSIUM 4.3 mmol/L (3.5-5.1); SODIUM 142 mmol/L (136-145); TCO2 28 mmol/L (25-35)
[2019-02-09] MEDS ORDERED: MISC. PHARMACY COMMUNICATION SCH (09:15)
[2019-02-09] MEDS ORDERED: VANCOMYCIN IV PER PHARMACY MISC SCH ×3 (09:15)
[2019-02-09] MEDS: NEXIUM PO SCH ×2 (10:30→21:08)
[2019-02-09] MEDS: MYCOSTATIN SUSP PO SCH ×4 (10:30→21:08)
[2019-02-09] MEDS: COENZYME Q10 PO SCH (10:30)
[2019-02-09] MEDS: ICAR-C PO SCH (10:30)
[2019-02-09] MEDS: COLACE PO SCH ×2 (10:31→21:05)
[2019-02-09] MEDS: HEMOCYTE PLUS CAPSULE PO SCH (10:31)
[2019-02-09] MEDS: CORTEF PO SCH ×2 (10:31→21:06)
[2019-02-09] MEDS: MIRALAX PO SCH (10:31)
--- NOTE | 2019-02-09 10:47 | INFECTIOUS DISEASE PROGRESS NO ---
DATE: 02/09/2019 PRESENT ILLNESS: The patient has a diphtheroid bacteremia which originated from his right Port-A- Cath which has been removed. The patient's repeat blood cultures are negative and they have stayed that way overnight. Today I discussed with the patient his treatment and I asked him if he had any foreign body in him and it turns out that he does have metal in his neck where he had C- spine surgery. When I first saw the patient and took a complete history and physical, he did not mention to me that he had a neck surgery which included having metal placed in his neck. MEDICATION: The patient currently is on penicillin and gentamicin. I discussed with the patient as mentioned above treatment and I told him that because of the metal in his neck, he will need to have 6 weeks of IV antibiotics. I further told him that I thought it would is that it would be very difficult for him to be treated with gentamicin for 6 weeks and that I thought it would be better to switch the patient to vancomycin as a single agent and discontinue gentamicin and penicillin. The patient did have the red man reaction to vancomycin and I explained to him that we will infuse the vancomycin dose slower which usually takes care of the red man reaction and also I am also told him that I am ordering Benadryl 25 mg p.o. an hour before each dose and also I have ordered for the patient's nurse to watch him during the first dose. PHYSICAL EXAMINATION: Vital Signs: Temperature is 99 degrees, pulse 106, respirations 18, blood pressure is 104/73. Generally: This is an obese, middle-aged male. He is in no acute distress. Head, eyes, ears, nose, and throat: He can hear my spoken words and see near objects. I did not see any white patches on his tongue. Neck: No pain with movement. No swelling. Lungs: Clear to auscultation. Cardiovascular: Regular heart rate. Thorax: The patient's Port-A-Cath site is not swollen or draining. Abdomen: Soft and nontender. Neurologic: The patient is alert. He is able to ambulate. There is no tremor. LAB AND X-RAY: There is no new radiographic study. CBC shows a white count of 3270, hemoglobin 10, platelet count is 75,000. Creatinine is 0.6, GFR is greater than 60. Repeat blood cultures as mentioned above have remained negative. ASSESSMENT AND PLAN: As mentioned above, I am switching the patient to vancomycin as a single agent and I plan to treat the patient for a total of 6 weeks because the metal in his neck could have become infected hematogenously while the patient was bacteremic. The patient's organism has been sent to the [facility] for susceptibility testing, but isn't back yet. Some of the side effects of vancomycin including rash, renal toxicity and ototoxicity have been explained to the patient who agrees with treatment. COMORBIDITIES: The patient has metastatic colon cancer to the liver. cc: Mario Montero MD
[2019-02-09] MEDS: BENADRYL PO SCH (12:46)
[2019-02-09] MEDS: LACTULOSE PO SCH ×2 (13:31→21:06)
[2019-02-09] MEDS: VANCOMYCIN 2 GM in NS 500 ML IV SCH (13:31)
[2019-02-09] MEDS: BIOTIN PO SCH (15:32)
[2019-02-09] MEDS ORDERED: SENOKOT PO ONE (16:58)
[2019-02-09] MEDS ORDERED: RELISTOR SUBQ ONE (17:01)
--- NOTE | 2019-02-09 17:29 | PROGRESS NOTE ---
DATE: 02/09/2019 SUBJECTIVE: Patient has no major complaints. He is overall doing okay, although he is a little fussy. He feels like he is bloated. No noted abdominal distention however. OBJECTIVE: Vital Signs: Blood pressure is 110/74, heart rate 75, respiratory rate of 19, temperature 98.5 degrees. Cardiovascular: Regular rate and rhythm. Pulmonary: Bilateral breath sounds clear to auscultation. Gastrointestinal: Abdomen soft, nontender, nondistended. Bowel sounds are positive. LABORATORY DATA: White count is 3, hemoglobin and hematocrit 10 and 31, platelets 75,000, which is an improvement. PROBLEM LIST: 1. Diphtheroid bacteremia associated with a Port-A-Cath infection. Port-A-Cath has been removed. Thus far, blood cultures from the 3rd are no growth, and that is the 3rd, 4th, 5th and 6th four days of no growth. Plan is to treat with IV antibiotics for 6 weeks because he has hardware in his neck. Dr. Montero has decided to switch him to vancomycin for facility of usage at home because penicillin and gentamicin is going to be problematic to give for 6 weeks. 2. Pancytopenia. His numbers are slowly improving. White count is trending upwards. Hemoglobin and hematocrit is improving. Platelets are improving. 3. Deep venous thrombosis history. He is on Xarelto. PLAN: Disposition, anticipate discharge tomorrow. He is requesting p.o. He is feeling constipated. He is also not wanting to stop his pain medication although, reportedly, he says he has not been taking pain medication anymore so we will probably stop his IV pain medication. We will continue to follow. DISPOSITION: Pending his clinical status. Anticipate discharge tomorrow if Dr. Montero agrees. cc: Andrew Simmons MD
[2019-02-09] MEDS: PERCOCET-10 PO PRN (17:37)
[2019-02-09] MEDS: XARELTO PO SCH (17:38)
[2019-02-09 17:59] LABS: AGAP 11; ALB/GLOB RATIO 1.5; ALKALINE PHOSPHATASE 175 U/L (32-122); BUN 4 mg/dL (8-22); CALCIUM 8.9 mg/dL (8.8-10.2); CHLORIDE 102 mmol/L (98-107); COSMO 275; CREATININE 0.7 mg/dL (0.7-1.2); ESTIMATED GFR > 60; GLUCOSE 103 mg/dL (70-104); GOT 28 U/L (10-34); GPT 34 U/L (10-44); POTASSIUM 4.2 mmol/L (3.5-5.1); SODIUM 139 mmol/L (136-145); TCO2 26 mmol/L (25-35); TOTAL BILIRUBIN 0.44 mg/dL (0.20-1.00); TOTAL PROTEIN 6.6 g/dL (6.3-8.3)
--- NOTE | 2019-02-09 19:18 | ECHO REPORT ---
ORDER DATE: 02/09/2019 INTERPRETING PHYSICIAN: Toñito Myles MD INDICATION: Bacteremia. Possible endocarditis. M-MODE MEASUREMENTS: Left ventricle end diastole: 5.0 cm. Left ventricle end systole: 2.8 cm. Posterior wall: 0.8 cm. Interventricular septum: 0.9 cm. Left atrium: 3.8 cm. Aortic diameter: 3.9 cm. SUMMARY OF 2-DIMENSIONAL IMAGIN. Left ventricular function is normal with an ejection fraction of 64%. There is no wall motion abnormality noted. 2. The aortic valve looks normal. Color flow mapping indicates trace of regurgitation. 3. The mitral valve looks normal. Color flow mapping indicates a very mild degree of regurgitation. 4. Pulsed wave Doppler of mitral inflow shows reversal of the E and the A ratio. Ratio is 0.7. 5. Tissue Doppler of septal and lateral mitral annulus in this case was not obtained. 6. The pulmonic valve looks normal. Color flow mapping unremarkable. 7. The tricuspid valve looks normal with mild degree of regurgitation. 8. There is no pericardial effusion, mass, and no thrombus. SUMMARY: In summary, this echocardiographic study does not show any indication of valvular involvement from endocardial vegetation. The left ventricular function is normal. Diastolic function is probably normal. However, because tissue Doppler was not carried out, I cannot be certain. There is no pericardial effusion, mass, and no thrombus. Clinical correlation is recommended. cc: MD Andrew Dominguez MD
[2019-02-09] MEDS: AMBIEN PO SCH (21:07)
[2019-02-09] MEDS: LYRICA PO SCH (21:08)
[2019-02-10] MEDS: PERCOCET-10 PO PRN ×2 (00:55→06:38)
[2019-02-10] MEDS: VANCOMYCIN 2 GM in NS 500 ML IV SCH ×2 (00:56→13:05)
[2019-02-10] MEDS: BENADRYL PO SCH ×2 (00:56→12:12)
[2019-02-10 08:05] LABS: BASO# 0.01 X1000 (0.0-0.2); BASO% 0.3 % (0.0-0.8); EOS# 0.11 X1000 (0.0-0.7); EOS% 3.1 % (0.0-10.0); HEMATOCRIT 31.7 % (42.0-52.0); HEMOGLOBIN 10.2 g/dL (14.0-18.0); LYMPH# 1.59 X1000 (1.2-3.4); LYMPH% 45.3 % (20.5-51.1); MCH 30.5 PG (27-31); MCHC 32.2 g/dL (33-37); MCV 94.9 FL (81-99); MONO# 0.26 X1000 (0.11-0.59); MONO% 7.4 % (1.7-9.3); MPV 9.2 FL (7.4-10.4); NEUT# 1.54 X1000 (1.4-6.5); NEUT% 43.9 % (42.2-75.2); PLT 100 X1000 (130-400); RBC 3.34 XMIL (4.7-6.1); RDW 16.3 % (11.5-14.5); WBC 3.51 X1000 (4.8-10.8)
[2019-02-10] MEDS: COENZYME Q10 PO SCH (09:07)
[2019-02-10] MEDS: ICAR-C PO SCH (09:07)
[2019-02-10] MEDS: NEXIUM PO SCH (09:07)
[2019-02-10] MEDS: HEMOCYTE PLUS CAPSULE PO SCH (09:07)
[2019-02-10] MEDS: COLACE PO SCH (09:07)
[2019-02-10] MEDS: CORTEF PO SCH (09:07)
[2019-02-10] MEDS: LACTULOSE PO SCH (09:08)
[2019-02-10] MEDS: BIOTIN PO SCH (09:08)
[2019-02-10] MEDS: MIRALAX PO SCH (09:08)
[2019-02-10] MEDS: MYCOSTATIN SUSP PO SCH ×4 (09:08→18:40)
[2019-02-10] MEDS ORDERED: CATHFLO IV ONE (14:59)
[2019-02-10] MEDS ORDERED: STERILE WATER INJ. INJ ONE (14:59)
[2019-02-10] MEDS ORDERED: TYLENOL PO ONE (16:54)
[2019-02-10 17:37] VITALS: BP 96/66
[2019-02-10] MEDS: XARELTO PO SCH (18:40)
--- NOTE | 2019-02-11 06:33 | DISCHARGE SUMMARY ---
ADMISSION DATE: 01/31/2019 DISCHARGE DATE: 02/10/2019 DISCHARGE DIAGNOSES: 1. Diphtheroid bacteremia associated with a port infection. 2. Metastatic colon cancer to liver. 3. Pancytopenia. 4. Chronic constipation. ADMITTING DIAGNOSES: 1. Port infection. 2. Metastatic cancer to the liver. PROCEDURES: 1. Port removal 02/[address] Boo with central line placement in the subclavian. 2. PICC line placement. CONSULTATIONS: 1. Dr. Boo, Surgery. 2. Dr. Barcenas, GI. 3. Dr. Montero, Infectious Diseases. 4. Dr. Cheri Dominguez, Hematology Oncology. HOSPITAL COURSE: Briefly this is a 48-year-old male with metastatic colon cancer. He has done many treatments with Dr. Dominguez, apparently 45 treatments. He is on the Manfred diet, CK3 treatments and coffee enemas. He recently went to [place] about 3 weeks prior for a coli solution infusion which is heat killed bacteria Streptococcus and Serratia and underwent treatment there. In the last 24 hours he has had fever on admission and he was admitted for treatment. Initial temperature was he was not febrile. White count was actually normal. He has never had an elevated white count. Blood cultures though, unfortunately, grew out diphtheroids, both cultures from initial blood culture on the and a chest wall culture done I think in the OR on the per Dr. Boo when his port was removed. Repeat blood cultures on the also grew out 1 out of 2 positive for diphtheroids. Most recent blood culture from the has been no growth to date and that is over 72 hours. The patient came in. He was placed on IV antibiotics. Dr. Montero was consulted. He was initially, I think, placed on daptomycin until we had positive blood culture data. 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 He was converted over to penicillin and gentamicin when diphtheroids were isolated per Dr. Montero' recommendation. His port was removed on the . GI was consulted because of abdominal pain, but felt this was likely because of hepatic metastases, which had actually improved in size despite treatment. Gallbladder was normal. He had a very slow course. PICC line was placed. Unfortunately, his blood culture 1 out of 2 was positive after PICC line was placed, but since that has been negative. He has been maintained on penicillin and gentamicin. Because of reported hardware in his neck, Dr. Montero feels that he needs 6 weeks of IV antibiotics. We had initially decided on 2 weeks. However, because of the nature of penicillin, gentamicin, especially ototoxicity and nephrotoxicity from gentamicin, elected to change him to vancomycin which he was dosed prior to discharge and tolerated without difficulty. He did have a slight drop in his white count, but that slowly came up. His hemoglobin and hematocrit has been stable 10 and 31. His platelets had dropped a bit, but again, started coming back up to 100. So, he was felt stable for discharge. He will have vancomycin 2 g IV q.12 for 6 weeks. Day 1 I think would be the 3rd as the 1st negative blood culture, but that will be at the discretion of Dr. Montero. He needs to follow up with Dr. Montero. He is going home with home IV therapy. Follow up with Dr. Dominguez 1 to 2 weeks. His echocardiogram obtained this admission was normal. There was no vegetation noted on the [facility]. The patient was felt stable for discharge. DISCHARGE MEDICATIONS: Lunesta 3 daily, Lyrica 50 daily, biotin, coenzyme-Q daily, [place] p.r.n., hydrocortisone 20 daily, Icar, iron 65 daily, Oxy IR 5 q.3 p.r.n. pain, hemocyte daily, MiraLAX 17 daily, Prilosec 40 daily, vancomycin 2 g IV q.12 for 6 weeks, Xarelto 20 daily. FOLLOWUP: With Dr. Montero in 1 to [address] Dominguez in 1 to 2 weeks. Return for worsening pain, fevers. Anticipate PICC will be discontinued when completed. cc: Andrew Simmons MD
== END 2019-02-10 20:25 | disposition home health service (06) | DRG 314 ==
LOC: SUPCPDRO → ED 13:58 → EDIPHOLD 17:26 → 3S 21:12 → 3N 02-04 15:09
PROVIDERS: ATTEND Internal Medicine

== ENCOUNTER 2019-02-18 17:21 | Inpatient (IN) ==
[2019-02-18] MEDS ORDERED: ASPIRIN PO ONE (17:26)
--- NOTE | 2019-02-18 17:57 | PROVIDER DOCUMENTATION ---
HPI-Chest Pain - General Chief Complaint: Chest Pain Stated Complaint: chest pain Time Seen by Provider: 02/18/19 17:23 Source: patient, family Allergies/Adverse Reactions: Patient Allergies Allergy/AdvReac Type Severity Reaction Status Date / Time morphine Allergy Unknown Verified 08/20/16 07:00 heparin AdvReac FLUSHING Verified 08/22/16 18:47 vancomycin AdvReac FLUSHING Verified 08/20/16 07:00 Home Medications: Home Medication List Medication Instructions Recorded Confirmed Last Taken Type Omeprazole 40 mg PO DAILY #30 capsule. 07/18/16 01/31/19 12/02/16 09:00 Rx Multivitamins/Iron [Hemocyte Plus 1 each PO DAILY #100 capsule 08/26/16 01/31/19 12/02/16 09:00 Rx Capsule] Docusate Sodium [Colace] 100 mg PO BID 11/29/16 01/31/19 12/02/16 09:00 History Rivaroxaban [Xarelto] 20 mg PO DAILY #0 12/07/16 01/31/19 12/02/16 09:00 Rx Biotin 5,000 mcg PO DAILY 01/31/19 01/31/19 Unknown History Eszopiclone 3 mg PO QHS 01/31/19 01/31/19 Unknown History Hydrocortisone 20 mg PO DAILY 01/31/19 01/31/19 Unknown History Iron,Carbonyl [Iron] 65 mg PO DAILY 01/31/19 01/31/19 Unknown History Pregabalin [Lyrica] 50 mg PO QHS 01/31/19 01/31/19 Unknown History Ubidecarenone [Co Q-10] 200 mg PO DAILY 01/31/19 01/31/19 Unknown History Oxycodone I.r. [Oxy Ir] 5 mg PO Q3H PRN PRN #45 cap 02/10/19 Unknown Rx Polyethylene Glycol 3350 [Miralax] 17 gm PO DAILY #30 powd.pack 02/10/19 Unknown Rx Vancomycin/0.9 % Sod Chloride 2 gm IV Q12H #76 plast..bag 02/10/19 Unknown Rx [Vanco 2 Gram/250 ml-0.9% NaCl] - History of Present Illness-CP Nature of Presenting Problem: 48yom present to ER with c/o L sided chest pain radiating to the back and into the L arm onset this afternoon. States he walked from one room to another and started having the chest pain, SOB, and diaphoresis. States he went and laid down. Pt has colorectal CA. Pt was discharged from here last week for sepsis secondary to a port infection. Denies fever. Pt has PICC line to L upper arm. Pt is on vancomycin at home. states it has been getting clogged and they have been giving him something for it. Pt states pain has eased since arrival. pt received 2 nitros and 100mcg Fentynl per EMS. Location: reports: other (L chest) Chest Pain Radiation: reports: arms (L), back Quality of Pain: reports: pressure, tightness Onset/Duration: this afternoon Timing: still present Associated Symptoms: reports: back pain, diaphoresis, dizziness, shortness of breath. denies: fever/chills, nausea, vomiting Nitro Today/Relief: 0.4 mg x 2 Prior Chest Pain/Cardiac Workup: reports: no prior cardiac workup Review of Systems - Adult - REVIEW OF SYSTEMS - ADULT Constitutional: reports: no symptoms reported. denies: fever Eyes: reports: no symptoms reported Ears, Nose, Mouth & Throat: reports: no symptoms reported Cardiovascular: reports: see HPI, chest pain Respiratory: reports: no symptoms reported Gastrointestinal: reports: no symptoms reported. denies: nausea, vomiting Genitourinary: reports: no symptoms reported Musculoskeletal: reports: see HPI, back pain Integumentary: reports: no symptoms reported Neurological: reports: see HPI, dizziness/vertigo Psychiatric: reports: no symptoms reported Endocrine: reports: no symptoms reported Hematologic/Lymphatic: reports: no symptoms reported Allergic/Immunologic: reports: no symptoms reported All Other Systems: Reviewed and Negative Past History - Adult - PAST MEDICAL HISTORY-ADULT Review of Records: reports: Old Records Reviewed, Nursing Assessment Review, Medications Reviewed, Social history reviewed & non-contributory. Major Childhood Illnesses: reports: denies history Cardiovascular: reports: denies history Respiratory: reports: denies history Gastrointestinal: reports: cancer Obstetrical/Gynecological: reports: denies history Genitourinary: reports: denies history Musculoskeletal: reports: denies history Neurological: reports: denies history Endocrine/Immune: reports: denies history Other Conditions: reports: denies history - PRIOR SURGERIES/PROCEDURES Surgical/Procedure History: reports: bowel surgery - IMMUNIZATION STATUS Childhood Immunizations: See Nurse Assessment Flu Vaccine: See Nurse Assessment - FAMILY HISTORY Family History: reviewed, not pertinent Physical Exam-General - PHYSICAL EXAM-ADULT Initial Vital Signs Reviewed: Yes - CONSTITUTIONAL General Appearance: alert, no apparent distress - EYES Eyes: pink conjunctivae - HEAD, EARS, NOSE, MOUTH & THROAT HENMT: moist mucous membranes, normal ENT inspection - NECK Neck: full range of motion, supple, normal inspection - RESPIRATORY Respiratory: lungs clear, normal breath sounds, no respiratory distress, no accessory muscle use, pain on inspiration - CARDIOVASCULAR Cardiovascular: no edema, tachycardia - GASTROINTESTINAL (ABDOMEN) Abdominal Exam: normal bowel sounds, non tender, soft - LYMPHATIC Lymphatic: no adenopathy - MUSCULOSKELETAL Back Exam: normal inspection Extremity: normal range of motion, normal inspection, no pedal edema, no calf tenderness, normal capillary refill - SKIN Integumentary: warm/dry, pallor. negative: cyanosis, diaphoresis, jaundice - NEUROLOGIC Neurologic: grossly normal - PSYCHIATRIC Psych/Mental Status: normal mood/affect, normal thought content, normal thought process, oriented x 3 - HEART Score HEART Score: History: Moderately Suspicious HEART Score: ECG: Normal HEART Score: Age: 45-65 Years HEART Score: Risk Factors for Atherosclerotic Disease: 1 or 2 Risk Factors HEART Score: Troponin: < or = Normal Limit Total HEART Score:: 3 Progress - PLAN OF CARE/RESULTS Progress/Plan/Lab Results: Vital Signs - 8 hr 02/18/19 17:24 02/18/19 17:30 02/18/19 17:33 Temperature 99.2 F Pulse Rate 102 H 95 H Respiratory Rate 18 14 Blood Pressure 99/66 99/66 O2 Sat by Pulse Oximetry 98 97 98 02/18/19 17:40 02/18/19 17:50 02/18/19 18:00 Temperature Pulse Rate 98 H 97 H 93 H Respiratory Rate 22 19 13 Blood Pressure O2 Sat by Pulse Oximetry 99 100 99 02/18/19 18:02 02/18/19 18:10 02/18/19 18:20 Temperature Pulse Rate 108 H 96 H 94 H Respiratory Rate 23 15 20 Blood Pressure 115/81 O2 Sat by Pulse Oximetry 100 100 100 02/18/19 18:30 02/18/19 18:32 02/18/19 18:40 Temperature Pulse Rate 94 H 101 H 92 H Respiratory Rate 20 13 19 Blood Pressure 99/70 O2 Sat by Pulse Oximetry 100 100 100 02/18/19 18:50 02/18/19 18:57 02/18/19 19:10 Temperature Pulse Rate 94 H 98 H 100 H Respiratory Rate 17 18 25 H Blood Pressure 99/68 O2 Sat by Pulse Oximetry 100 100 99 02/18/19 19:13 02/18/19 19:20 02/18/19 19:30 Temperature Pulse Rate 93 H 92 H 92 H Respiratory Rate 16 20 18 Blood Pressure 94/68 O2 Sat by Pulse Oximetry 98 100 99 02/18/19 19:32 02/18/19 19:40 02/18/19 19:50 Temperature Pulse Rate 88 93 H 100 H Respiratory Rate 18 17 20 Blood Pressure 102/75 O2 Sat by Pulse Oximetry 100 100 100 02/18/19 20:00 02/18/19 20:02 Temperature Pulse Rate 102 H 103 H Respiratory Rate 18 17 Blood Pressure 97/69 O2 Sat by Pulse Oximetry 100 100 Laboratory Results - last 24 hr 02/18/19 02/18/19 02/18/19 17:53 17:53 17:53 WBC 3.53 L RBC 3.32 L Hgb 10.2 L Hct 32.5 L MCV 97.9 MCH 30.7 MCHC 31.4 L RDW Std Deviation 17.7 H Plt Count 338 MPV 8.0 Immature Gran % (Auto) 0.0 Neut % (Auto) 22.7 L Lymph % (Auto) 49.0 Scott % (Auto) 24.9 H Eos % (Auto) 2.3 Baso % (Auto) 1.1 H Immature Gran # (Auto) 0.00 Neut # (Auto) 0.80 L Lymph # (Auto) 1.73 Scott # (Auto) 0.88 H Eos # (Auto) 0.08 Baso # (Auto) 0.04 Segmented Neutrophils 36 L Lymphocytes 36 Monocytes 26 H Eosinophils 2 Pathologist Review PT INR PTT (Actin FS) D-Dimer, Quantitative Sodium 139 Potassium 4.0 Chloride 103 Carbon Dioxide 25 Anion Gap 11 BUN 5 L Creatinine 0.7 Estimated GFR/1.73 m2 > 60 BUN/Creatinine Ratio 7 Glucose 91 Calculated Osmolality 274 Calcium 9.3 Total Bilirubin 0.38 AST 28 ALT 28 Alkaline Phosphatase 158 H Creatine Kinase 107 Troponin T Ovn-I-Sneqbhxrbbu Pept 224 H Total Protein 6.0 L Albumin 4.0 Globulin 2.0 Albumin/Globulin Ratio 2.0 02/18/19 02/18/19 02/18/19 17:53 17:53 17:53 WBC RBC Hgb Hct MCV MCH MCHC RDW Std Deviation Plt Count MPV Immature Gran % (Auto) Neut % (Auto) Lymph % (Auto) Scott % (Auto) Eos % (Auto) Baso % (Auto) Immature Gran # (Auto) Neut # (Auto) Lymph # (Auto) Scott # (Auto) Eos # (Auto) Baso # (Auto) Segmented Neutrophils Lymphocytes Monocytes Eosinophils Pathologist Review PT 14.4 INR 1.10 PTT (Actin FS) 34.6 D-Dimer, Quantitative 0.57 H Sodium Potassium Chloride Carbon Dioxide Anion Gap BUN Creatinine Estimated GFR/1.73 m2 BUN/Creatinine Ratio Glucose Calculated Osmolality Calcium Total Bilirubin AST ALT Alkaline Phosphatase Creatine Kinase Troponin T < 0.010 Att-H-Jlfvoussvpi Pept Total Protein Albumin Globulin Albumin/Globulin Ratio 02/18/19 20:40 WBC RBC Hgb Hct MCV MCH MCHC RDW Std Deviation Plt Count MPV Immature Gran % (Auto) Neut % (Auto) Lymph % (Auto) Scott % (Auto) Eos % (Auto) Baso % (Auto) Immature Gran # (Auto) Neut # (Auto) Lymph # (Auto) Scott # (Auto) Eos # (Auto) Baso # (Auto) Segmented Neutrophils Lymphocytes Monocytes Eosinophils Pathologist Review PT INR PTT (Actin FS) D-Dimer, Quantitative Sodium Potassium Chloride Carbon Dioxide Anion Gap BUN Creatinine Estimated GFR/1.73 m2 BUN/Creatinine Ratio Glucose Calculated Osmolality Calcium Total Bilirubin AST ALT Alkaline Phosphatase Creatine Kinase Troponin T < 0.010 Xqj-[id number]-Tyckefpcyiq Pept Total Protein Albumin Globulin Albumin/Globulin Ratio Orders Category Date Time Status Nursing [[facility] [place]. NRSG Communication Order] DIRECTED Care 02/18/19 21:22 Active CHEST-2 VIEWS [RAD] Stat Exams 02/18/19 18:[address] ANGIOGRM PULMONARY ARTERIES [CT] Stat Exams 02/18/19 18:52 Completed CBC WITH DIFF [HEME] Stat Lab 02/18/19 17:53 Completed CK PROFILE [SP CHEM] Stat Lab 02/18/19 17:53 Completed COMPREHENSIVE METABOLIC PANEL [CHEM] Stat Lab 02/18/19 17:53 Completed D-DIMER [COAG] Stat Lab 02/18/19 17:53 Completed PRO B-NATRIURETIC PEPTIDE Stat Lab 02/18/19 17:53 Completed PROTIME WITH INR [COAG] Stat Lab 02/18/19 17:53 Completed PTT [COAG] Stat Lab 02/18/19 17:53 Completed TROPONIN T Stat Lab 02/18/19 17:53 Completed TROPONIN T Stat Lab 02/18/19 20:40 Completed Aspirin Med 02/18/19 17:26 Discontinued 325 mg PO NOW ONE EKG [EKG] Stat Ther 02/18/19 17:26 Draft EKG [EKG] Stat Ther 02/18/19 19:48 Draft Result Diagrams: 02/18/19 17:53 02/18/19 17:53 - REASSESSMENT Reassessment #1 Time Reassessed: 20:55 (updated pt of results thus far and possible plan to dc home pending negative trop. Pt informs me his PICC line is not working and needs to take vancomycin at 2[address]. Discuss[address] Duffy who suggests admitting pt.) Reassessment #2 Time Reassessed: 21:36 (Updated pt of all labs and CTA. Pt had appointment in the morning with oncology.) - EKG 1 Time of EKG reading by physician:: 17:44 EKG Read and Signed by:: Lora Gonzalez EKG Interpretation (*Must complete 3 of following elements*): Abnormal Rate: 96 Rhythm: NSR Comments: Inferior infarct, age undetermined - XRAY 1 XRAY Study: Chest Impression: See EMR Report ( FINDINGS: The left PICC line is in stable position. There are stable skin martell projecting over the the right chest wall. The lungs are grossly clear. There is no discrete pleural fluid collection or pneumothorax. The cardiomediastinal silhouette and central vasculature are grossly unremarkable. IMPRESSION: No evidence of acute pathology by plain radiograph.) - CT/MRI 1 CT Study: Angiogram Impression: See EMR Report (FINDINGS: There is no evidence of pulmonary embolism. There is no aortic dissection or aneurysm. There is no cardiomegaly. There is no evidence of significant mediastinal or hilar lymphadenopathy. There are several subcentimeter noncalcified pulmonary nodules that probably represent metastatic foci given the patient's history. These are stable. There is mild subsegmental atelectasis at the lung bases. The lungs are clear, otherwise. There is no pleural fluid collection and no pneumothorax. Limited views of the upper abdomen reveal multiple metastatic lesions throughout the liver that are similar to the recent prior study. IMPRESSION: 1.Stable subcentimeter pulmonary nodules bilaterally most consistent with metastatic disease. 2.Minimal subsegmental atelectasis at the lung bases. 3.Numerous hepatic metastatic lesions that appear similar to the recent prior study. 4.No evidence of pulmonary embolism.) - CONSULTS/PCP/HOSPITALIST Notification #1 *Consult/PCP/Hospitalist*: Dr Griffin Time Discussed: 21:30 (made aware pt needs Vancomycin 1500mg q8h. Pt requests pretreatment with benadryl due to hx of red man syndrome.) Consult Disposition: Admit Departure - Departure Date of Disposition Decision: 02/18/19 Time of Disposition Decision: 21:37 DIAGNOSIS: Liver metastases, Shortness of breath Chest pain Qualifiers: Chest pain type: unspecified Qualified Code(s): R07.9 - Chest pain, unspecified Colon cancer Qualifiers: Colon location: unspecified part of colon Qualified Code(s): C18.9 - Malignant neoplasm of colon, unspecified Occluded PICC line Qualifiers: Encounter type: initial encounter Qualified Code(s): T82.898A - Other specified complication of vascular prosthetic devices, implants and grafts, initial encounter Disposition: ADMITTED INPATIENT 09 Certified Medical Emergency: Emergent Condition: Fair Referrals and Follow-Ups: Reji Perez MD [Primary Care Provider] - - Critical Care Note This patient required my direct & personal management of CC.: No Attestation - Physician/ PHILLY Attestation Patient care was provided by Advanced Practice Provider:: Yes Advanced Practice Provider:: Beatriz Dinero Advanced Practice Provider documentation review:: The Mid-level provider documentation, treatment plan and medical decision making was reviewed by the physician who agrees with all treatment and medical decision making by the [facility]. The physician spent face to face time with patient:: No Advanced Practice Provider documentation review:: Supervising physician onsite a nd consulted in the evaluation and care of this patient. The physician did not have a face to face encounter with the patient.
--- NOTE | 2019-02-18 18:11 | EKG Report ---
Test Performed on : 02/18/2019 5:44:52 PM Test Reason : CP Blood Pressure : / mmHG Vent. Rate : 096 BPM Atrial Rate : 096 BPM P-R Int : 130 ms QRS Dur : 084 ms QT Int : 336 ms P-R-T Axes : 024 -09 022 degrees QTc Int : 424 ms Normal sinus rhythm. Inferior infarct (cited on or before 22-AUG-2016) Abnormal ECG When compared with ECG of 22-AUG-2016 17:08, No significant change was found Unconfirmed Result
[2019-02-18 18:15] LABS: BASO# 0.04 X1000 (0.0-0.2); BASO% 1.1 % (0.0-0.8); EOS# 0.08 X1000 (0.0-0.7); EOS% 2.3 % (0.0-10.0); HEMATOCRIT 32.5 % (42.0-52.0); HEMOGLOBIN 10.2 g/dL (14.0-18.0); LYMPH# 1.73 X1000 (1.2-3.4); MCH 30.7 PG (27-31); MCHC 31.4 g/dL (33-37); MCV 97.9 FL (81-99); MONO# 0.88 X1000 (0.11-0.59); MONO% 24.9 % (1.7-9.3); NEUT% 22.7 % (42.2-75.2); PLT 338 X1000 (130-400); RBC 3.32 XMIL (4.7-6.1); RDW 17.7 % (11.5-14.5); WBC 3.53 X1000 (4.8-10.8)
[2019-02-18 18:21] LABS: INR 1.1; PROTIME 14.4 Seconds (11.0-16.0)
[2019-02-18 18:22] LABS: PTT 34.6 Seconds (22.3-41.8)
[2019-02-18 18:29] LABS: EOS 2 % (1-10); LYMPHS 36 % (21-51); MONO 26 % (1-9); SEGS 36 % (42-75)
[2019-02-18 18:31] LABS: AGAP 11; ALKALINE PHOSPHATASE 158 U/L (32-122); BUN 5 mg/dL (8-22); CALCIUM 9.3 mg/dL (8.8-10.2); CHLORIDE 103 mmol/L (98-107); CK PROFILE 107 U/L (24-204); COSMO 274; CREATININE 0.7 mg/dL (0.7-1.2); ESTIMATED GFR > 60; GLUCOSE 91 mg/dL (70-104); GOT 28 U/L (10-34); GPT 28 U/L (10-44); SODIUM 139 mmol/L (136-145); TCO2 25 mmol/L (25-35); TOTAL BILIRUBIN 0.38 mg/dL (0.20-1.00)
--- NOTE | 2019-02-18 19:29 | Diag Imaging Result Doc PS360 ---
EXAM: CHEST-2 VIEWS INDICATION: cp TECHNIQUE: 2 views COMPARISON: 02/06/2019 FINDINGS: The left PICC line is in stable position. There are stable skin martell projecting over the the right chest wall. The lungs are grossly clear. There is no discrete pleural fluid collection or pneumothorax. The cardiomediastinal silhouette and central vasculature are grossly unremarkable. IMPRESSION: No evidence of acute pathology by plain radiograph. Electronically signed by Andrew Lowe 02/18/2019 7:27 PM
--- NOTE | 2019-02-18 20:04 | ED EKG INTERP ---
This chart was entered by Rachel Sanderson Scribe, acting as scribe for Yossi Duffy MD. EKG Interpretation - EKG Time of EKG reading by physician:: 19:58 EKG Read and Signed by:: Yossi Duffy EKG Interpretation (*Must complete 3 of following elements*): Normal Rate: 98 Rhythm: nsr [place]: normal QRS: normal ID Interval: normal ST Wave: normal Attestation - Physician/ PHILLY Attestation Patient care was provided by Advanced Practice Provider:: Yes Advanced Practice Provider documentation review:: The Mid-level provider documentation, treatment plan and medical decision making was reviewed by the physician who agrees with all treatment and medical decision making by the MLP. The physician spent face to face time with patient:: No Advanced Practice Provider documentation review:: Supervising physician onsite and consulted in the evaluation and care of this patient. The physician did not have a face to face encounter with the patient. This chart was documented by the indicated scribe, (Rachel Sanderson Scribe) and accurately reflects the services I performed and decisions made by Clive torres Brad R., MD, as attested by the provider's signature.
--- NOTE | 2019-02-18 21:02 | Diag Imaging Result Doc PS360 ---
EXAM: CT ANGIOGRM PULMONARY ARTERIES INDICATION: sob, cp TECHNIQUE: This exam was performed using automated exposure control, adjustment of mA or kV according to patient size, and/or use of iterative reconstruction technique. Thin section axial images and 3-D MIPS were obtained. COMPARISON: 01/31/2019 FINDINGS: There is no evidence of pulmonary embolism. There is no aortic dissection or aneurysm. There is no cardiomegaly. There is no evidence of significant mediastinal or hilar lymphadenopathy. There are several subcentimeter noncalcified pulmonary nodules that probably represent metastatic foci given the patient's history. These are stable. There is mild subsegmental atelectasis at the lung bases. The lungs are clear, otherwise. There is no pleural fluid collection and no pneumothorax. Limited views of the upper abdomen reveal multiple metastatic lesions throughout the liver that are similar to the recent prior study. IMPRESSION: 1.Stable subcentimeter pulmonary nodules bilaterally most consistent with metastatic disease. 2.Minimal subsegmental atelectasis at the lung bases. 3.Numerous hepatic metastatic lesions that appear similar to the recent prior study. 4.No evidence of pulmonary embolism. Electronically signed by Andrew Lowe 02/18/2019 9:00 PM
--- NOTE | 2019-02-18 21:02 | EKG Report ---
Test Performed on : 02/18/2019 7:56:00 PM Test Reason : CP Blood Pressure : / mmHG Vent. Rate : 098 BPM Atrial Rate : 098 BPM P-R Int : 130 ms QRS Dur : 084 ms QT Int : 332 ms P-R-T Axes : 029 -04 020 degrees QTc Int : 423 ms Normal sinus rhythm. Normal ECG When compared with ECG of 18-FEB-2019 17:44, (Unconfirmed) No significant change was found Unconfirmed Result
[2019-02-18] MEDS ORDERED: BENADRYL PO PRN (23:58)
[2019-02-18] MEDS ORDERED: SOD CHLORIDE IV SCH (23:58)
[2019-02-18] MEDS ORDERED: ZOFRAN IV PRN (23:58)
[2019-02-18] MEDS ORDERED: NITROGLYCERIN SL PRN (23:58)
[2019-02-18] MEDS ORDERED: TYLENOL PO PRN (23:58)
[2019-02-18] MEDS ORDERED: VANCOMYCIN IV SCH (23:58)
[2019-02-19] MEDS: BENADRYL PO PRN ×2 (01:22→15:46)
[2019-02-19] MEDS ORDERED: VANCOMYCIN 2,000 MG in NS 500 ML IV SCH (02:00)
[2019-02-19] MEDS ORDERED: OXY IR PO PRN (05:34)
[2019-02-19] MEDS ORDERED: VANCOMYCIN IV PER PHARMACY MISC SCH (05:45)
[2019-02-19] MEDS ORDERED: PRILOSEC PO SCH (07:00)
--- NOTE | 2019-02-19 07:41 | EKG Report ---
Test Performed on : 02/19/2019 07:31:26 AM Test Reason : cp Blood Pressure : / mmHG Vent. Rate : 095 BPM Atrial Rate : 095 BPM P-R Int : 124 ms QRS Dur : 090 ms QT Int : 346 ms P-R-T Axes : 028 007 035 degrees QTc Int : 434 ms Normal sinus rhythm. Normal ECG When compared with ECG of 18-FEB-2019 19:56, (Unconfirmed) No significant change was found Confirmed by Martha Frazier MD ([id number]) on 02/19/2019 4:28:55 PM
[2019-02-19] MEDS: DILAUDID IV PRN ×3 (08:57→18:13)
[2019-02-19] MEDS ORDERED: COENZYME Q10 PO SCH (09:00)
[2019-02-19] MEDS ORDERED: PATIENT'S OWN MED PO SCH (09:00)
[2019-02-19] MEDS ORDERED: ASPIRIN EC PO SCH (09:00)
[2019-02-19] MEDS ORDERED: CORTEF PO SCH (09:00)
[2019-02-19] MEDS ORDERED: XARELTO PO SCH (09:00)
[2019-02-19 09:04] LABS: AGAP 11; BUN 5 mg/dL (8-22); CALCIUM 9.7 mg/dL (8.8-10.2); CHLORIDE 104 mmol/L (98-107); COSMO 278; CREATININE 0.7 mg/dL (0.7-1.2); ESTIMATED GFR > 60; GLUCOSE 94 mg/dL (70-104); POTASSIUM 3.8 mmol/L (3.5-5.1); SODIUM 141 mmol/L (136-145); TCO2 26 mmol/L (25-35)
[2019-02-19 09:16] LABS: BASO# 0.03 X1000 (0.0-0.2); BASO% 1.1 % (0.0-0.8); EOS# 0.07 X1000 (0.0-0.7); EOS% 2.5 % (0.0-10.0); HEMOGLOBIN 10.6 g/dL (14.0-18.0); LYMPH# 1.18 X1000 (1.2-3.4); LYMPH% 41.7 % (20.5-51.1); MCH 31.4 PG (27-31); MCHC 32.1 g/dL (33-37); MCV 97.6 FL (81-99); MONO# 0.86 X1000 (0.11-0.59); MONO% 30.4 % (1.7-9.3); MPV 8.5 FL (7.4-10.4); NEUT# 0.69 X1000 (1.4-6.5); NEUT% 24.3 % (42.2-75.2); PLT 357 X1000 (130-400); RBC 3.38 XMIL (4.7-6.1); RDW 17.8 % (11.5-14.5); WBC 2.83 X1000 (4.8-10.8)
[2019-02-19 09:29] LABS: BANDS 4 % (0-1); EOS 4 % (1-10); HYPOCHROM 1+; LYMPHS 50 % (21-51); MONO 8 % (1-9); POIKILOCYTOSIS 1+; SEGS 28 % (42-75)
--- NOTE | 2019-02-19 14:04 | CARDIOLOGY CONSULTATION ---
DATE: 02/19/2019 CHIEF COMPLAINT ON PRESENTATION: Chest pain. HISTORY OF PRESENT ILLNESS: Mr. Jarrell is a 48-year-old gentleman with metastatic colorectal cancer followed by Dr. Cheri Dominguez. Yesterday he was in his usual state of health when he was walking through the house and had a sharp knife-like pain in his midchest that radiated through to the back and up the back into the posterior neck area. There did not appear to be any exertional component associated with this. It persisted for several hours. It was in a waxing and waning fashion an when it would relieve a little bit there would be a persistent throbbing sensation. He does have a component that is reproducible with palpation of the left lower sternal border. There is no obvious external signs of trauma and no history of trauma to that area. He was little bit short of breath with the bouts. He has no history of coronary disease. No recent febrile illnesses. PAST MEDICAL HISTORY: Significant for 1. Metastatic colorectal cancer diagnosed in 2016. The most recent study seemed to demonstrate metastases to the liver as well as the lungs. 2. Degenerative disk disease. 3. Believe he had a history of a pulmonary embolus. He is currently maintained on Xarelto. The pulmonary embolus was diagnosed in 2017. SOCIAL HISTORY: He is . He has 2 children. He apparently has not been working recently. No tobacco use. FAMILY HISTORY: Mother apparently has no health issues. Father is alive has history of some sort of liver malignancy in 2006. He has a family history of colon cancer. He has 2 brothers with no apparent health issues. REVIEW OF SYSTEMS: A 10 system review of systems is negative except for those things mentioned in HPI. PHYSICAL EXAMINATION: Vital Signs: He is afebrile. His heart rate is 90, his blood pressure is 113/80. General: He is in no acute distress. HEENT: Oropharynx is moist. Normal dentition. Eye examination show pink conjunctivae. White sclerae. Neck: Shows no obvious thyromegaly or thyroid tenderness. Cardiovascular: He sounds to be in a regular rate and rhythm. He has no obvious murmurs. He has no S3. He has no lower extremity edema. He has mild tenderness to palpation along the left lower sternal border but no obvious signs of external trauma. Chest: Clear bilaterally. No increased work of breathing. Abdomen: Soft, nontender. No obvious organomegaly. Skin: Warm and dry throughout. He has no obvious rashes. Neurological: He is moving all extremities well. He has no lateralizing deficits. Psychiatric: He is alert, oriented, pleasant. He has a normal mood and affect. PERTINENT DATA: He had a pulmonary arteriogram that demonstrates stable subcentimeter pulmonary nodules bilaterally that are most consistent with metastatic disease. He has some atelectasis in the bases, numerous hepatic metastatic lesions appears similar to a previous study. No evidence of pulmonary embolus. He had an EKG performed on the at 1744 that shows sinus rhythm, 96 beats per minute. No evidence of significant abnormalities. Subsequent EKG on the at 1956 shows sinus rhythm, no signs of significant abnormalities. Last EKG on the at 7:31 shows sinus rhythm, no significant abnormalities. His lab data demonstrates a white count of 2.8, his hematocrit is 33, his platelet count is 357,000, he has 28% neutrophils, 4% bands. Sodium 141, potassium 3.8, BUN 5, creatinine 0.7. Cardiac enzymes are negative. His LDL 66, HDL is 41. ASSESSMENT: Mr. Jarrell is a 48-year-old gentleman with a history of metastatic colorectal cancer present with chest pain. PLAN: His symptoms are markedly atypical. He has negative cardiac enzymes and a unremarkable set of EKGs. His pulmonary arteriogram does not demonstrate any significant emboli. Will review his echocardiogram and if there are no significant abnormalities from that standpoint he could be potentially discharged from a cardiovascular standpoint. He has a absolute neutrophil count of 792. Certainly infectious etiologies need to potentially be considered. cc: Joseluis Badillo MD
[2019-02-19] MEDS ORDERED: CATHFLO IV ONE (14:08)
[2019-02-19] MEDS ORDERED: STERILE WATER INJ. INJ ONE (14:08)
--- NOTE | 2019-02-19 14:55 | HEMO/ONC CONSULTATION ---
DATE: 02/19/2019 CONSULTATION REQUESTED BY: Hospitalist service. HISTORY OF PRESENT ILLNESS: Mr. Jarrell is a 48-year-old male who is known to us as we have been treating him for metastatic colorectal cancer who presented to the emergency department yesterday complaining of chest pain with diaphoresis and shortness of breath. The patient actually recently in the hospital and discharged on February 10 after having a port infection. He is status post port removal. He is currently receiving vancomycin through a PICC line in his left arm. Dr. Montero is managing his IV antibiotics. He will need 6 weeks of IV antibiotics due to having bacteremia and he also has metal in his back. The patient got up and started to walk around had shortness of breath with chest pain and became diaphoretic. He also had pale complexion and there is concerns so he was brought to the emergency room. A CT angio has been done and has ruled out PE. The patient's last treatment was on 12/17/2018 as he has recently been down at [facility] receiving immunologic treatments and vitamin C infusions. The patient reports that he feels fine today. There is some concern about some pulmonary nodule seen on the of the chest CT that the patient his have questions about. PAST MEDICAL HISTORY: 1. Metastatic colorectal cancer diagnosed back in 2015. Most recently received Camptosar back on 12/17/2018. 2. Degenerative disk disease. 3. Hernia. 4. Port infection with diphtheroid bacteremia February 2019. Patient is currently on IV vancomycin per Infectious Disease. SURGICAL HISTORY: C5-C6 spinal fusion back in 2003, hernia repair in 1999, colon resection 2015, port placement in 2015 with port removal in February 2019. SOCIAL HISTORY: Patient is lives with his . He has 2 children. 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 He denies any alcohol, illicit drug use or tobacco use. FAMILY HISTORY: Positive for liver cancer as well lung cancer. REVIEW OF SYSTEMS: Twelve point review of systems has been completed negative except for what is expressed in the HPI. PHYSICAL EXAMINATION: Vital Signs: Temperature 99.4 degrees, heart rate 90, respirations 20, blood pressure 113/80, O2 saturation 99% on room air. General: This is a male lying in his hospital bed. He is currently getting an ultrasound of his left arm. He is in no acute distress. HEENT: Head, normocephalic, atraumatic. Pupils equal, round, reactive. Oral mucosa appears to be normal. Cardiovascular: S1, S2 heard. No murmurs, gallops, rubs appreciated. Respiratory: Chest is clear. Normal respiratory effort. Gastrointestinal: Abdomen soft. Positive bowel sounds noted. Musculoskeletal: No obvious bony abnormalities. Extremities: No edema. Neurologic: Patient is alert and oriented with no focal motor deficits noted at this time. LABS AND STUDIES: White blood cells 2.83, hemoglobin 10.6, platelet count 357,000. Sodium 141, potassium 3.8, chloride 104, CO2 of 26, BUN 5, creatinine 0.7, glucose 94. Troponin has been less than 0.010 since admission. Alkaline phosphatase is 158. CT angio shows stable subcentimeter pulmonary nodules bilaterally most consistent with metastatic disease. Minimal subsegmental atelectasis. Numerous hepatic metastatic lesions that appear similar to recent study. No evidence of pulmonary embolism. ASSESSMENT AND PLAN: 1. Metastatic colorectal cancer. Patient is actually due to come to our office today for an outpatient visit to discuss resuming treatment after his stay in [place]. Of course that did not happen. Plan will be to reschedule things once the patient is out. We are going to consider doing restaging scans since has not had treatment in a while. 2. Chest pain. Cardiology has been consulted. Follow up on their recommendations. 3. Port infection with bacteremia. Patient will continue on vancomycin. He will continue to follow with Dr. Montero as scheduled. Dr. Montero is managing his IV antibiotics. 4. Pulmonary nodules on CT scan. We did go back and review CT scans back even from 2017 that were done at [facility] and he had some benign appearing nodules at that time. We will certainly continue to monitor with scans as an outpatient. Thank you for consulting us on Mr. Jarrell. Will continue follow along adjust our treatment plan per his hospital course. We will be available by phone over the weekend. We will resume regular followup on Friday. Dictated by MARY Kulkarni for Cheri Dominguez MD cc: Cheri Dominguez MD I have seen and examined the patient and the above note reflects my history, exam, assessment and plan. Cheri Dominguez MD [facility] CENTERBlanquita
--- NOTE | 2019-02-19 15:10 | PROGRESS NOTE ---
DATE: 02/19/2019 SUBJECTIVE: Patient reports no chest pain at all. Denies any fever or chills. OBJECTIVE: Vital Signs: Temperature 99.4 degrees, heart rate 72 respiratory rate 20, blood pressure 113/80, O2 saturation 99% on room air. General examination: This is a 48-year-old male, chronically ill-looking, lying in bed, in no acute distress. Cardiovascular: S1, S2 heard. No murmurs, gallops, or rubs. Regular rate and rhythm. Respiratory: Clear bilaterally to auscultation. No work of breathing or using accessory muscles. Abdomen: Soft. Nontender to palpation. Bowel sounds present. No organomegaly. Extremities: No clubbing, cyanosis, or edema. Peripheral pulses present both legs. Neurological: Patient alert and oriented x3. Moves 4 extremities. LABORATORY DATA: Reviewed. ASSESSMENT AND PLAN: 1. Chest pain. The patient was admitted to the hospital for this condition. The patient was having this pain that was waxing and waning, and at this point, this sensation is completely gone. We have checked sets of troponins so far, plus Cardiology consult. I think this pain may be coming from those subcentimeter lesions noted in the lungs that are probably metastatic lesions. A limited view echo has been ordered. We will follow recommendations from Cardiology. 2. Staphylococcus bacteremia. Patient was admitted to the hospital, according to the ER note, because 1 of the lines for the PICC line got clogged up, so I think at this point, we will try to fix that problem with Cathflo. Otherwise, we need to get a new PICC line. DISPOSITION: I think if we are able to fix the problem with the PICC line and consider that he has 3 sets of enzymes that are negative, I think he can be discharged either later on today or tomorrow. cc: MD FAM Gibson
[2019-02-19 15:41] VITALS: BP 119/82
[2019-02-19] MEDS ORDERED: VANCOMYCIN 1,500 MG in NS 250 ML IV SCH (16:00)
--- NOTE | 2019-02-19 18:19 | ECHO REPORT ---
ORDER DATE: 02/19/2019 INDICATION: Limited study to evaluate for vegetations. M-mode measurements were not obtained. SUMMARY OF 2-DIMENSIONAL IMAGIN. Left ventricular function is excellent. Ejection fraction is 60% to 65%. 2. There is no pericardial effusion. 3. The aortic valve looks normal. There is no evidence of vegetation. 4. The mitral valve looks normal. Color flow mapping unremarkable. There is no evidence of vegetation. 5. The pulmonic valve was visualized, and there is no evidence of vegetation. 6. The tricuspid valve was also visualized, and I do not see evidence of vegetation. Clinical correlation recommended. It would make sense to do a transesophageal echocardiogram if the patient has persistent bacteremia with a bacteria that is known to cause endocarditis. cc: MD Lauren Dominguez PA
--- NOTE | 2019-02-19 20:17 | HISTORY AND PHYSICAL ---
CHIEF COMPLAINT: Chest pain. HISTORY OF PRESENT ILLNESS: This is a 48-year-old male who presented to the emergency room with left-sided chest pain that radiated to his back and into his left arm with an onset earlier this afternoon. He also complained of shortness of breath and diaphoresis. He went and lay down. He did not get any better, so he came in to the emergency room. The patient was discharged last week for sepsis secondary to a port infection. Denied fever or chills, nausea, vomiting or diarrhea. Has a PICC line to his left upper arm. He is on vancomycin at home. Prior to arrival, in the ambulance he was given 2 nitroglycerin and some fentanyl. The chest pain had resolved. He also complained of some dizziness related to the episode. Cardiac enzymes are negative. CT angiogram was negative for pulmonary embolism; however, he will be admitted for further evaluation and treatment. PAST MEDICAL HISTORY: 1. Colorectal cancer with metastases. 2. Staphylococcus bacteremia from his catheter site. 3. Degenerative disc disease. 4. History of pulmonary embolus. 5. Bilateral inguinal hernias. PREVIOUS SURGICAL HISTORY: 1. Cervical disc replaced 15 years ago . 2. Tonsillectomy. 3. Colon resection and then colon resection repair. FAMILY HISTORY: Mother apparently had no health issues. Father had a liver malignancy in 2005 and is still living. He has a family history of colon cancer. Two brothers with no apparent health issues. SOCIAL HISTORY: with 2 children. No tobacco, alcohol, or illicit drugs. ALLERGIES: Morphine, heparin and vancomycin, with vancomycin causing red man syndrome. HOME MEDICATIONS: I know that the patient was taking 2000 mg of vancomycin b.i.d. and Xarelto. His other home medications have not been reconciled. These will be restarted when appropriate. REVIEW OF SYSTEMS: A 14-point review of systems was conducted with the patient. Pertinent positives as listed above in the HPI. Other systems were reviewed and found to be negative . PHYSICAL EXAMINATION: VITAL SIGNS: Temperature 99.1, pulse 97, respirations 13, blood pressure 115/81, oxygen saturation 100% on room air. GENERAL: Unfortunate 48-year-old male lying in the ER stretcher, alert and oriented x3. Answers all questions appropriately. In no acute distress. HEENT: Head is atraumatic, normocephalic. Pupils equal, round, and reactive to light. Extraocular eye movements intact. Sclerae are anicteric. Conjunctivae are pink. Oral mucosa is moist. NECK: Supple. No JVD. No thyromegaly. Trachea is midline. No lymphadenopathy. CARDIOVASCULAR: S1 and S2 appreciated, mildly tachycardic. No murmurs, gallops or rubs. Mild tenderness to palpation to the left side of his chest. LUNGS: Clear to auscultation. No rhonchi, wheezes or rales. Symmetric rise and fall with respirations. ABDOMEN: Soft, nondistended, nontender. Bowel sounds present in all 4 quadrants, normoactive. No pulsatile mass. No organomegaly. EXTREMITIES: No clubbing, cyanosis, or edema. PICC line noted, clean, dry and intact. NEUROLOGICAL: Alert and oriented x3. Cranial nerves II-XII grossly intact. DIAGNOSTIC DATA: CT of the chest did not show a pulmonary embolism, however, did appear to show metastases to the liver and pulmonary nodules. LABORATORY DATA: WBCs 3.52, hemoglobin 21.5, platelet count 338. D-dimer is 0.57. Sodium 139, potassium 4, chloride 103, carbon dioxide 25, BUN 5, creatinine 0.7, glucose 91. Troponin is less than 0.010. ASSESSMENT/PLAN: 1. Chest pain, rule out acute myocardial infarction. Consult Cardiology. Trend cardiac enzymes. Nitroglycerin and Dilaudid as needed for pain The patient is allergic to Morphine. 2. Staphylococcus bacteremia. Will continue his vancomycin. He has previously listed an allergy. Will premedicate with Benadryl. 3. Anemia of chronic inflammation, aware. 4. History of deep venous thromboses and pulmonary embolisms. Continue Xarelto. 5. Colorectal cancer with metastases. Aware. Will consult Dr. Cheri Dominguez, his primary oncologist. 5. Further recommendations pending patient's clinical course. Dictated by CHRISTINA Quintero for Terrance Griffin MD I have performed a face to face diagnostic evaluation. Labs/ Xrays- reviewed. Exam- chest- clear, CV- regular. A/P- chest pain- admit, cardiac work up, cardiology consult. Dr. Griffin cc: CHRISTINA Quintero MD [facility]
[2019-02-19] MEDS ORDERED: AMBIEN PO SCH (21:00)
[2019-02-19] MEDS ORDERED: LYRICA PO SCH (21:00)
--- NOTE | 2019-02-20 13:07 | DISCHARGE SUMMARY ---
ADMISSION DATE: 02/18/2019 DISCHARGE DATE: 02/19/2019 DISCHARGE DIAGNOSES: 1. Chest pain, resolved, and acute coronary syndrome ruled out. 2. Staphylococcus bacteremia. 3. Anemia of chronic disease. 4. History of deep venous thrombosis. CONSULTATIONS: 1. Cardiology, Dr. Joseluis Badillo. 2. Hematology/Oncology, Dr. Cheri Dominguez. PROCEDURES: Echocardiogram, limited views, show an ejection fraction of 60 to 65 percent. Rest of the exam grossly normal. HOSPITAL COURSE: The patient was admitted to the hospital for chest pain. Apparently, chest pain was happening on and off so we decided to admit this patient to the hospital. Three sets of troponins were checked and patient chest pain was gone. We have checked limited view echocardiogram that was actually unremarkable, so he was discharged in stable condition. There was another concern of the patient about his PICC line that he is using for staphylococcal infection bacteremia, so we used Cathflo to make those lines patent, so patient was happy with that and he will continue with his home medications. DISCHARGE PHYSICAL EXAMINATION: Vital signs: Temperature 98.8 degrees, heart rate 81, respiratory rate 20, blood pressure 119/82, O2 saturation 99% on room air. General: This is a 48-year-old male, lying in bed, in no acute distress. Cardiovascular: S1, S2 heard. No murmurs, gallops, or rubs. Regular rate and rhythm. Respiratory: Clear bilaterally to auscultation. No work of breathing or using accessory muscles. Abdomen: Soft, nontender to palpation. Bowel sounds present. No organomegaly. Extremities: No clubbing, cyanosis, or edema. Peripheral pulses present in both legs. Neurologic: Patient alert and oriented x3. Moves 4 extremities. DISCHARGE DISPOSITION: Home to self-care. MEDICATIONS: We are not making any changes to his current medications. TIME SPENT: Time discharging this patient, 28 minutes. cc: Deric Lovell MD
--- NOTE | 2019-02-22 13:43 | Extremity Venous Study ---
PROCEDURE NAME: Venous U/S Left Arm - 02/19/2019 LEFT UPPER EXTREMITY VENOUS DUPLEX: REFERRING PRACTITIONER: MARY Russell. READING PHYSICIAN: Dr. Osito Wolf. INDICATIONS: Left arm pain with indwelling PICC line. FINDINGS: The left internal jugular subclavian, axillary, brachial, cephalic and basilic veins were imaged. They are compressible, patent and without thrombus. INTERPRETATION: No DVT or SVT of the left upper extremity. cc: MD Lauren Mohamud PA
== END 2019-02-19 19:32 | disposition home health service (06) | DRG 313 ==
LOC: SUPCPDRO → ED 17:21 → SUATTDRO 23:41 → 3N 23:41
PROVIDERS: ATTEND Internal Medicine

== ENCOUNTER 2019-02-23 10:48 | Inpatient (IN) ==
--- NOTE | 2019-02-23 13:58 | Diag Imaging Result Doc PS360 ---
EXAM: CHEST-1 VIEW 02/23/2019 HISTORY: pneumonia TECHNIQUE: AP portable upright at 1351 COMMENT: There is no evidence of acute cardiac or pulmonary disease. There is a PICC line on the left with its tip in the superior vena cava. IMPRESSION: No evidence of acute disease is present. Electronically signed by Ant Dubon 02/23/2019 1:56 PM
--- NOTE | 2019-02-23 14:46 | INFECTIOUS DISEASE PROGRESS NO ---
DATE: 02/23/2019 PRESENT ILLNESS: Mr. Jarrell was being treated at home for a diphtheroid bacteremia which originated from the Port-A-Cath in his right chest, which has been removed. He is in the midst of a 6 week treatment with vancomycin due to the possibility of hematogenous infection to the metal in his neck from a previous C-spine surgery. Last night he spiked a temperature of 101.7. At that time we asked him to come in as a direct admit. He has colon cancer with metastases to the liver. MEDICATIONS: He has been receiving IV vancomycin per pharmacy dosing which he previously had a flushing reaction to; however he has done well with it at home up until last night. Based on the list of susceptibilities obtained from the [facility], we will start him on ceftriaxone 2gm IV every 12 hours. Today is day 17 of a 6-week treatment for his bacteremia. PHYSICAL EXAM: Vital Signs: Temperature is 99.6 degrees, pulse rate 72, respiratory rate 22, blood pressure 97/59, he is 92 kg and 6 feet tall. General: This is a fairly healthy-appearing, middle-aged gentleman. He is lying in bed currently in no acute distress. HEENT: Atraumatic, normocephalic. Oral mucous membranes are pink and moist. Conjunctivae are pink. Neck: Supple. Trachea is midline. Cardiovascular: Heart rate is regular. Respiratory: Lung sounds are clear to auscultation bilaterally. Abdomen: Soft, round and tender, particularly to the right upper quadrant and midepigastric areas. Bowel sounds are active. Neurologic: He is awake, alert, oriented, able to ambulate independently. Integumentary: There is a PICC line in place to the left upper arm. The site is without edema, erythema or drainage. No rashes or lesions are noted. Skin is warm and dry. The right chest prior Port-A-Cath site is healing well with just a small amount of pink to the incision line and very mild eschar. LABORATORY/X-RAY: Have been ordered for today and not yet obtained, however yesterday his white count was 4.58, hemoglobin 10.3, platelet count 287,000, creatinine 0.8. His blood cultures have been sterile since February 06. No imaging reports yet today. ASSESSMENT AND PLAN: Mr. Jarrell was being treated at home for diphtheroid bacteremia using vancomycin, when he developed a fever last night. It is possible that he has a drug fever caused by the vancomycin, however we do need to rule out the possibility of other sources. At this point we will stop the vancomycin and start him on ceftriaxone 2 g IV every 12 hours. We do have susceptibilities from the [facility] available for the diphtheroids, which shows that the organism is susceptible to ceftriaxone. Based on his sterile blood cultures, today is day 17 of a 6-week treatment for his bacteremia, which he needs due to the possibility of hematogenous infection to the metal in his neck. We will draw another set of blood cultures today, and obtain a urinalysis, urine culture and chest x-ray. The patient is unable to take heparin and has had some issues with the blood draw from his PICC line, so we have ordered Cathflo as well as an order for nursing to be allowed to pull blood from his PICC. He has had multiple sticks from recent admissions. After reviewing everything with him and his at the bedside they stated understanding and agreed with the plan as ordered. These plans have been discussed with and recommended by Dr. Montero. COMORBIDITIES: Include colorectal cancer with metastases to the liver and deep vein thromboses. Dictated by CHRISTINA Robertson for Mario Montero MD cc: MD Jimmy Hernandez MD MTDD
[2019-02-23] MEDS ORDERED: TYLENOL PO PRN (14:47)
[2019-02-23 14:49] LABS: BASO# 0.04 X1000 (0.0-0.2); BASO% 0.7 % (0.0-0.8); EOS# 0.03 X1000 (0.0-0.7); EOS% 0.6 % (0.0-10.0); HEMATOCRIT 32.2 % (42.0-52.0); HEMOGLOBIN 10.2 g/dL (14.0-18.0); LYMPH# 0.98 X1000 (1.2-3.4); MCH 30.1 PG (27-31); MCHC 31.7 g/dL (33-37); MONO# 1.03 X1000 (0.11-0.59); MONO% 18.9 % (1.7-9.3); MPV 8.6 FL (7.4-10.4); NEUT# 3.37 X1000 (1.4-6.5); NEUT% 61.8 % (42.2-75.2); PLT 221 X1000 (130-400); RBC 3.39 XMIL (4.7-6.1); RDW 16.7 % (11.5-14.5); WBC 5.45 X1000 (4.8-10.8)
[2019-02-23 15:19] LABS: AGAP 11; ALB/GLOB RATIO 1.4; ALKALINE PHOSPHATASE 156 U/L (32-122); BUN 9 mg/dL (8-22); CALCIUM 9.1 mg/dL (8.8-10.2); CHLORIDE 99 mmol/L (98-107); COSMO 275; CREATININE 0.8 mg/dL (0.7-1.2); ESTIMATED GFR > 60; GLUCOSE 114 mg/dL (70-104); GOT 29 U/L (10-34); GPT 34 U/L (10-44); SODIUM 138 mmol/L (136-145); TCO2 28 mmol/L (25-35); TOTAL BILIRUBIN 0.44 mg/dL (0.20-1.00); TOTAL PROTEIN 6.8 g/dL (6.3-8.3)
[2019-02-23] MEDS ORDERED: DEMEROL IV PRN ×2 (15:21→15:22)
[2019-02-23] MEDS ORDERED: OXY IR PO PRN (15:27)
--- NOTE | 2019-02-23 15:41 | HISTORY AND PHYSICAL ---
PRIMARY CARE PROVIDER: Dr. Reji Perez. ONCOLOGIST: Dr. Cheri Dominguez. INFECTIOUS DISEASE: Dr. Mario Montero. CHIEF COMPLAINT: Direct admission from Dr. Montero for fever. She has been on IV vancomycin for recent diphtheroid bacteremia associated with his port. HISTORY OF PRESENT ILLNESS: Mr. Jarrell is a 48-year-old male who carries a past medical history of stage IV colon cancer with metastasis to the liver. He has had multiple treatments with Dr. Dominguez. DVT in the lungs, both upper and lower extremities on Xarelto. A little over a month ago he went to [facility] to receive different immunotherapy treatments. He has recently been admitted to our service on 01/31/2019 after coming back from [place] for his treatments, and was found to have a bacteremia associated with a port infection. His port was removed by Dr. Boo, and he had an insertion of a PICC line. He came back to the hospital to be admitted for chest pain on 02/18, and was discharged back home the next day with self care after he was ruled out for [place]. He reports he started spiking fevers last night at 101.8. He did ice and Tylenol, and low-grade fevers throughout the day. He called Dr. Montero' office. They requested us to directly admit him. Currently, all laboratory and diagnostics are pending. PAST MEDICAL HISTORY: 1. 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 Dominguez. 2. DVT of the lungs upper and lower extremities on Xarelto. 3. Bilateral inguinal hernias. PAST SURGICAL HISTORY: 1. Disk replaced in the neck 15 years ago. 2. Tonsillectomy. 3. Colon resection and colon resection repair. FAMILY HISTORY: Reviewed and noncontributory. SOCIAL HISTORY: He is and lives with his . No alcohol, tobacco, or illicit drug use. ALLERGIES: To morphine that caused spasms. Heparin caused flushing. Vancomycin causes red man syndrome. MEDICATIONS: Home medications are being compiled. PHYSICAL EXAMINATION: VITAL SIGNS: Temperature 99.6 degrees, heart rate 72, respirations 22, blood pressure 97/59. GENERAL: Mr. Jarrell is a pleasant 48-year-old male who is sitting up in bed in no acute distress. HEENT: Atraumatic, normocephalic. PERRL. NECK: Supple. Trachea midline. CARDIOVASCULAR: S1, S2 appreciated. No murmurs, gallops, or rubs noted. RESPIRATORY: Lung sounds clear bilaterally. GI: Soft and tender to the right upper quadrant to epigastric region. Positive bowel sounds in four quadrants. It is soft to the touch. NEUROLOGIC: No focal deficits noted. LABORATORY DATA: Currently pending. ASSESSMENT AND PLAN: 1. Diphtheroid bacteremia associated with port infection status post removal of port with insertion of PICC line. The patient has been on IV antibiotics with I believe vancomycin. Continues to spike fevers. He is a direct admit by Dr. Montero. Currently pending laboratory and diagnostic data. His IV antibiotics have been changed to Rocephin. Continues to have issues with his port not being able to draw back. They have given him a dose of Cathflo. We will also put in for a CT of the abdomen and pelvis as well as a right upper quadrant ultrasound. 2. Continued right upper quadrant abdominal pain that is now radiating to the epigastric region. Again, we will do a CT of the abdomen and pelvis with contrast as well as a right upper quadrant ultrasound. 3. Metastatic rectal colon cancer aware. 4. Chronic constipation. 5. History of DVT's. We will continue Xarelto when verified. 6. Further recommendations to follow physician evaluation, laboratory and diagnostic data. Dictated by CHRISTINA Mims for Karley Ugarte MD cc: MD Jimmy Monique MD Dr. Harris Heather Shah, MD Kenneth E. Mashburn, MD I performed a face to face encounter on the patient. I reviewed all labs and imaging on the patient. I agree with the H&P as dictated. [facility]
[2019-02-23] MEDS ORDERED: STERILE WATER INJ. INJ ONE ×2 (16:00→16:05)
[2019-02-23] MEDS ORDERED: CATHFLO IV ONE ×2 (16:00→16:05)
--- NOTE | 2019-02-23 16:59 | Diag Imaging Result Doc PS360 ---
EXAM: CT ABD/PELVIS W/PO AND IV CON 02/23/2019 HISTORY: RUQ abd pain TECHNIQUE: This exam was performed using automated exposure control, adjustment of mA or kV according to patient size, and/or use of iterative reconstruction technique. COMMENT: The current study is compared with the previous examination of 01/31/2019. The appearance of the visualized portion of the chest has not changed significantly. There are multiple hepatic masses. This was also the case at the time the previous study, however some of these masses are larger. The mass at the dome of the liver measures 2.2 cm on the current study and the previously was 18 mm in diameter. There is a lesion anteriorly in the right lobe which measures 2.6 cm in diameter on the arterial phase versus 2 cm at the time the previous study. There is a lesion in the left lobe anteriorly on image 32 measuring 2.8 cm in transverse dimension on the current study which measured 2.4 cm previously. The aorta is not distended and the mesenteric and renal arteries are patent. The spleen is enlarged at almost 15 cm. This previously measured 14.6 cm. The adrenal glands are not enlarged. The pancreas is unremarkable in appearance. There is some stool in the colon particularly the right colon. The appendix is normal in appearance. There is no evidence of gallstones. There is no evidence of bowel obstruction. There is a prominent left periaortic node on image 86 of the portal venous series which has not changed significantly in size or appearance since the previous study. There is no evidence of hydronephrosis. There is a cyst in the left kidney. There is a stone in the mid collecting system of the left kidney measuring 6 mm in diameter which was also present previously. Pelvis: There is diverticulosis in the sigmoid colon. There has been previous resection of portions of the sigmoid colon. The urinary bladder is unremarkable. There is no evidence of free fluid. There is no evidence of significant adenopathy. There are some sclerotic lesions in the lumbar spine which are stable in appearance compared to the previous study. IMPRESSION: Worsened hepatic metastatic disease. Electronically signed by Ant Dubon 02/23/2019 4:56 PM
[2019-02-23] MEDS ORDERED: XARELTO PO SCH (17:00)
[2019-02-23] MEDS: NORCO-10 PO PRN (17:34)
--- NOTE | 2019-02-23 17:54 | Diag Imaging Result Doc PS360 ---
EXAM: US GB < RUQ (LIMITED) 02/23/2019 HISTORY: RUQ pain known met ca TECHNIQUE: Right upper quadrant ultrasound COMMENT: The visualized portions of the pancreatic head are normal in appearance. The visualized portions of the aorta and inferior vena cava are within normal limits. There are heterogeneous masses in the liver. One of these near the diaphragm measures almost 6 cm in largest dimension. Another measures 4 cm in greatest dimension. The gallbladder is apparently clear and nontender. The right kidney is without evidence of hydronephrosis or mass. There is no evidence of biliary dilatation although the common bile duct is not demonstrated. There is nonvisualization of the portal vein as well. IMPRESSION: Multiple hepatic metastases. Otherwise no evidence of acute disease. Electronically signed by Ant Dubon 02/23/2019 5:51 PM
[2019-02-23 18:17] LABS: URINE SOURCE VOIDED
[2019-02-23 18:19] LABS: BILIRUBIN URINE NEGATIVE (NEGATIVE); BLOOD URINE NEGATIVE (NEGATIVE); COLOR YELLOW; GLUCOSE URINE NEGATIVE (NEGATIVE); KETONE URINE NEGATIVE (NEGATIVE); LEUKOCYTES URINE NEGATIVE (NEGATIVE); NITRITE URINE NEGATIVE (NEGATIVE); PH URINE 7.5; PROTEIN URINE TRACE mg/dL (NEGATIVE); SP GRAVITY URINE 1.013; TURBIDITY URINE CLEAR (CLEAR); UR EPITHELIAL CELLS <10 /HPF (<10); URINE BACTERIA NEGATIVE /HPF; URINE RBC <10 /HPF (<10); URINE WBC <10 /HPF (<10); UROBILINOGEN URINE NORMAL (NORMAL)
[2019-02-23] MEDS: ROCEPHIN 2 GM in NS 50 ML IV SCH (18:28)
[2019-02-23] MEDS: LYRICA PO SCH (20:43)
[2019-02-23] MEDS: AMBIEN PO SCH (20:43)
[2019-02-23] MEDS: DILAUDID IV PRN (20:43)
[2019-02-24] MEDS: DILAUDID IV PRN ×5 (03:53→21:12)
[2019-02-24] MEDS: ROCEPHIN 2 GM in NS 50 ML IV SCH ×2 (06:23→17:50)
[2019-02-24 06:48] LABS: AGAP 10; BUN 8 mg/dL (8-22); CALCIUM 9.2 mg/dL (8.8-10.2); CHLORIDE 102 mmol/L (98-107); COSMO 280; CREATININE 0.7 mg/dL (0.7-1.2); ESTIMATED GFR > 60; GLUCOSE 99 mg/dL (70-104); POTASSIUM 4.1 mmol/L (3.5-5.1); SODIUM 141 mmol/L (136-145); TCO2 29 mmol/L (25-35)
[2019-02-24 06:50] LABS: BASO% 1.1 % (0.0-0.8); EOS% 1.1 % (0.0-10.0); HEMATOCRIT 31.5 % (42.0-52.0); HEMOGLOBIN 9.9 g/dL (14.0-18.0); IMM GRAN% 0.4 % (0.0-0.5); LYMPH% 29.9 % (20.5-51.1); MCH 29.8 PG (27-31); MCHC 31.4 g/dL (33-37); MCV 94.9 FL (81-99); MONO% 20.2 % (1.7-9.3); MPV 8.9 FL (7.4-10.4); NEUT% 47.3 % (42.2-75.2); PLT 239 X1000 (130-400); RBC 3.32 XMIL (4.7-6.1); RDW 16.5 % (11.5-14.5); WBC 4.61 X1000 (4.8-10.8)
[2019-02-24 06:51] LABS: BASO# 0.05 X1000 (0.0-0.2); EOS# 0.05 X1000 (0.0-0.7); IMM GRAN# 0.02 X1000 (0.0-0.04); LYMPH# 1.38 X1000 (1.2-3.4); MONO# 0.93 X1000 (0.11-0.59); NEUT# 2.18 X1000 (1.4-6.5)
[2019-02-24 07:24] LABS: BANDS 4 % (0-1); EOS 1 % (1-10); LYMPHS 37 % (21-51); MONO 9 % (1-9); SEGS 49 % (42-75)
[2019-02-24] MEDS: ZOFRAN IV PRN ×2 (08:45→15:05)
[2019-02-24] MEDS: CORTEF PO SCH (08:45)
[2019-02-24] MEDS: XARELTO PO SCH (08:46)
[2019-02-24] MEDS: PRILOSEC PO SCH (08:46)
[2019-02-24] MEDS ORDERED: XARELTO PO SCH (09:00)
--- NOTE | 2019-02-24 13:55 | PROGRESS NOTE ---
DATE: 02/24/2019 SUBJECTIVE: The patient complains of abdominal pain. No fevers were noted overnight. OBJECTIVE: Vital Signs: Temperature 98 degrees, blood pressure 113/74, heart rate 76, respirations 19, O2 saturation 95% on room air. General: This is a morbidly obese male, sitting in bed in no acute distress. Heart: S1, S2 normal. Regular rate and rhythm. Lungs: Equal air entry bilaterally. No crackles. Abdomen: Positive bowel sounds. Soft, nontender, nondistended. Extremities: No edema, no cyanosis. Neurologic: The patient is alert and oriented x4. LABORATORY DATA: Reviewed. ASSESSMENT AND PLAN: 1. Bacteremia secondary to diphtheroid. We will continue with antibiotic therapy as directed by Dr. Montero. 2. Status post infected Port-A-Cath removal. Aware. 3. Obesity. Aware. 4. Metastatic colon cancer. Aware. 5. Constipation. Will start the patient on a laxative regimen. 6. 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 Continue on Xarelto. 7. Bilateral inguinal hernias. Aware. Disposition: The patient will be discharge home tomorrow with home IV antibiotics. cc: Karley Ugarte MD MTDD
--- NOTE | 2019-02-24 14:31 | HEMO/ONC CONSULTATION ---
DATE: 02/24/2019 REFERRING PHYSICIAN: Dr. Ugarte. REASON FOR REFERRAL: Metastatic colorectal cancer, known to our service. HISTORY OF PRESENT ILLNESS: Mr. Kenton Jarrell is of a very pleasant 48-year-old male with a history of metastatic colorectal cancer, known to our service. He has been in and out of the hospital recently for a bacteremia-associated port infection. The port was removed by Dr. Boo and a PICC line was placed. He was readmitted to the hospital for chest pain on February 18 and was discharged home. He presented back to the emergency room yesterday with reports of fever as high as 101.8. He has been followed by Dr. Montero for his infection. He was on IV vancomycin, but has been switched over to Rocephin. The Hematology/Oncology service was placed on consult to provide further workup and treatment options. The patient was previously receiving palliative treatment with irinotecan. He did receive a couple doses of Erbitux, but it was discontinued due to poor tolerance. His last treatment with us was on 12/17/2017. He then went to [facility] to receive immunologic treatments as well as vitamin C infusions. PAST MEDICAL HISTORY: 1. Metastatic colorectal cancer. 2. Bilateral inguinal hernias. 3. DVT. 4. Port-A-Cath infection. 5. Degenerative disk disease. PAST SURGICAL HISTORY: 1. Tonsillectomy. 2. Hernia repair. 3. C5-C6 spinal fusion. 4. Colon resection. 5. Port-A-Cath removal. FAMILY HISTORY: Positive for liver cancer as well as lung cancer. SOCIAL HISTORY: The patient denies any alcohol, tobacco, or illicit drug use. He is and has 2 children. ALLERGIES: Vancomycin, heparin, morphine. MEDICATIONS: As per medication sheet. REVIEW OF SYSTEMS: As per HPI. Otherwise, a 12-point review of systems was negative. PHYSICAL EXAMINATION: General: The patient appears to be in no apparent distress. He is lying quietly in his hospital bed with family at bedside. Vital Signs: Temperature 99.3 degrees Fahrenheit, pulse 87, respiratory 20, blood pressure 105/62, O2 saturation 94% on room air. HEENT: Head normocephalic, atraumatic. Mucosa is pink and moist. Pupils reactive to light. Oropharynx clear. Neck: Supple. No lymphadenopathy or thyromegaly. Cardiovascular: S1, S2. Regular rate and rhythm. No murmurs noted. Respiratory: Breath sounds clear to auscultation bilaterally. No rhonchi, rales or wheezing noted. Gastrointestinal: Soft, nontender, nondistended. Positive for bowel sounds. Neurologic: Gait not assessed. No focal motor deficits. Alert and oriented x3. ASSESSMENT AND PLAN: 1. Metastatic colorectal cancer. Status post palliative treatment with irinotecan as well as Erbitux which was discontinued due to poor tolerability. His last treatment was 12/17/2017. He then went to [facility] where he received immunologic treatments as well as vitamin C infusions. Most recent CT scan does show worsening hepatic metastatic disease. Will plan to hold any further chemotherapy until fevers have resolved. 2. Diphtheroid bacteremia associated with port infection status post removal of port with insertion of PICC line. The patient is being followed by Dr. Montero. His IV antibiotics have been changed to Rocephin. We agree with current workup and present management. 3. Right upper quadrant abdominal pain. Likely secondary to #1. 4. History of deep venous thrombosis. We agree with continuing Xarelto. Further workup and treatment options will depend upon the patient's hospital course, as well as response to current therapy. Thank you for this consult and allowing us to take part in the care of this patient. We will follow along with you. Dictated by CHRISTINA Luciano for Cheri Dominguez MD cc: MD Karley Bryan MD I have seen and examined the patient and the above note reflects my history, exam, assessment and plan. Cheri Dominguez MD [facility] SURGERYBlanquita
--- NOTE | 2019-02-24 14:36 | INFECTIOUS DISEASE PROGRESS NO ---
DATE: 02/24/2019 PRESENT ILLNESS: The patient has a diphtheroid bacteremia. MEDICATIONS: The patient was switched from vancomycin to Rocephin. PHYSICAL EXAMINATION: Vital Signs: Temperature is 98 degrees, pulse 76, respirations 19, blood pressure 113/74. General: This is a fairly healthy-appearing, obese, middle-aged male. He is in no acute distress. Head, eyes, ears, nose, and throat: He can hear my spoken words and see near objects. He does not have any white patches in the throat. Neck: No meningismus. Extremities: The patient has a PICC in the left arm. The site is not erythematous or swollen. Lungs: Clear to auscultation. Cardiovascular: Regular heart rate. Abdomen: Soft and not tender. Neurologic: The patient is alert. He can move his extremities. There is no tremor. LAB AND X-RAY: Creatinine is 0.7. GFR is greater than 60. CBC shows a white count of 4,610, hemoglobin 9.9, and platelet count 239,000. Urinalysis shows no white cells or bacteria. Urine culture is negative. Blood cultures are pending. CT scan of the abdomen and pelvis and ultrasound of the abdomen both show worsening of the patient's hepatic metastatic disease. The gallbladder looks okay. ASSESSMENT AND PLAN: The patient has a diphtheroid bacteremia. I am treating him for 6 weeks with antibiotics because he has metal in his cervical spine which may have become infected hematogenously. The patient has had 19 days of antibiotics and will require 23 more days to complete his 6 week course of antibiotics. I have requested that the patient have an appointment in my office in 3 weeks. COMORBIDITIES: Unfortunately the patient has metastatic colorectal cancer. cc: MD Karley Hernandez MD
[2019-02-24] MEDS: MIRALAX PO SCH (21:12)
[2019-02-24] MEDS: AMBIEN PO SCH (21:12)
[2019-02-24] MEDS: LYRICA PO SCH (21:12)
[2019-02-24] MEDS: LACTULOSE PO SCH (21:13)
[2019-02-25] MEDS: ROCEPHIN 2 GM in NS 50 ML IV SCH (06:08)
[2019-02-25] MEDS: DILAUDID IV PRN ×2 (06:08→10:22)
[2019-02-25 06:46] LABS: BASO# 0.06 X1000 (0.0-0.2); BASO% 1.2 % (0.0-0.8); EOS# 0.09 X1000 (0.0-0.7); EOS% 1.9 % (0.0-10.0); HEMATOCRIT 31.9 % (42.0-52.0); HEMOGLOBIN 10.2 g/dL (14.0-18.0); IMM GRAN# 0.02 X1000 (0.0-0.04); IMM GRAN% 0.4 % (0.0-0.5); LYMPH# 1.55 X1000 (1.2-3.4); LYMPH% 31.9 % (20.5-51.1); MCH 30.1 PG (27-31); MCV 94.1 FL (81-99); MONO# 0.76 X1000 (0.11-0.59); MONO% 15.6 % (1.7-9.3); MPV 8.9 FL (7.4-10.4); NEUT# 2.38 X1000 (1.4-6.5); PLT 256 X1000 (130-400); RBC 3.39 XMIL (4.7-6.1); RDW 15.9 % (11.5-14.5); WBC 4.86 X1000 (4.8-10.8)
[2019-02-25 07:12] LABS: AGAP 11; ALB/GLOB RATIO 1.4; ALBUMIN 3.8 g/dL (3.5-5.0); ALKALINE PHOSPHATASE 149 U/L (32-122); BUN 11 mg/dL (8-22); CHLORIDE 102 mmol/L (98-107); COSMO 284; CREATININE 0.7 mg/dL (0.7-1.2); ESTIMATED GFR > 60; GLUCOSE 89 mg/dL (70-104); GOT 21 U/L (10-34); GPT 24 U/L (10-44); POTASSIUM 4.4 mmol/L (3.5-5.1); SODIUM 143 mmol/L (136-145); TCO2 30 mmol/L (25-35); TOTAL PROTEIN 6.6 g/dL (6.3-8.3)
[2019-02-25 07:56] VITALS: BP 97/62
[2019-02-25] MEDS ORDERED: CULTURELLE PO SCH (09:00)
[2019-02-25] MEDS ORDERED: COLACE PO SCH (09:00)
[2019-02-25] MEDS: XARELTO PO SCH (09:22)
[2019-02-25] MEDS: CORTEF PO SCH (09:22)
[2019-02-25] MEDS: MIRALAX PO SCH (09:23)
[2019-02-25] MEDS: LACTULOSE PO SCH (09:23)
[2019-02-25] MEDS: PRILOSEC PO SCH (09:23)
[2019-02-25] MEDS: NORCO-10 PO PRN (09:38)
--- NOTE | 2019-02-26 04:49 | DISCHARGE SUMMARY ---
ADMISSION DATE: 02/23/2019 DISCHARGE DATE: 02/25/2019 PRIMARY CARE PHYSICIAN: Dr. Reji Perez. ONCOLOGIST: Dr. Cheri Dominguez. FINAL DISCHARGE DIAGNOSES: 1. Bacteremia secondary to diphtheroid. 2. Status post removal of an infected Port-A-Cath. 3. Metastatic colon cancer. 4. Obesity. 5. Chronic constipation. 6. History of pulmonary embolism with multiple deep venous thromboses. CONSULTATIONS: 1. Oncology consultation with Dr. Dominguez. 2. ID consultation with Dr. Montero. IMAGIN. Abdominal ultrasound performed on 02/23/2019 that reveals multiple hepatic metastasis. 2. CT of the abdomen and pelvis performed on 02/23/2019 that reveals worsened hepatic metastatic disease. HOSPITAL COURSE: Mr. Jarrell is a 48-year-old male with a history of metastatic colon cancer as well as recently diagnosed bacteremia secondary to diphtheroids who presented to the ER with a chief complaint of abdominal pain and high fevers at home. The patient had recently just been discharged from the hospital 48 hours prior to this new admission. He had been sent home with vancomycin, but continued to have fevers at home despite receiving IV antibiotics. The patient was admitted to the hospitalist service and ID as well as Oncology were consulted. Repeat blood cultures were obtained, and the patient's antibiotic regimen was changed to Rocephin to 2 g IV every 12 hours. With the change in medication, the patient stopped spiking fevers. At this time, the blood cultures are negative. It was recommended by Dr. Montero that the patient complete 6 weeks of therapy with Rocephin. Arrangements were made with a continuum to provide the antibiotic therapy for the patient for another 23 days. The patient continued to improve clinically and was ultimately cleared for discharge home on 02/25/2019. On the day of discharge, the patient was noted to have a white blood cell count of 4.8, and temperature of 98.5 degrees, and a blood pressure of 97/62. DISCHARGE MEDICATIONS: 1. Rocephin 2 g IV every 12 hours x23 days. 2. Xarelto 20 mg oral daily. 3. Hydrocortisone 20 mg oral daily. 4. CoQ10 200 mg oral daily. 5. Lyrica 50 mg oral at bedtime. 6. Oxy IR 5 mg oral every 3 hours p.r.n. for pain. 7. Darling 10 1 tab oral every 4 hours p.r.n. for pain. 8. Omeprazole 40 mg p.o. daily. DISCHARGE DIET: Regular diet. ACTIVITY: As tolerated. FOLLOWUP INSTRUCTIONS: The patient will need to follow up with Dr. Peerz on 03/03/2019 at 10:00 in the morning. The patient will need to follow up with Dr. Mario Montero on 03/18/2019 at 10:00 in the morning. cc: Karley Ugarte MD
== END 2019-02-25 11:21 | disposition home health service (06) | DRG 315 ==
LOC: DIRADM 10:48 → SUATTDRO 10:48 → EDIPHOLD 13:15 → 3N 15:10
PROVIDERS: ADMIT Internal Medicine; ATTEND Internal Medicine